=== PATIENT | male | born 1965 | race Caucasian/White ===

== ENCOUNTER → 2016-09-29 | Outpatient (CLI) | payer BC ==
--- NOTE | 2016-09-29 16:42 | CR ---
EXAMINATION: Right ribs HISTORY: Pain COMPARISON: CT dated 07/20/2016 TECHNIQUE: 2 views FINDINGS/IMPRESSION: There is no displaced rib fracture identified. No pleural effusion or pneumotho rax. Bone mineralization is normal.
== END ==
LOC: MW.CHFP 15:14
PROVIDERS: ATTEND Physician Assistant
DX: R07.81 Pleurodynia (principal)
CPT/HCPCS: 71100-26-RT; 71100-RT

== ENCOUNTER 2018-09-30 03:13 | Emergency (ER) | payer OTHER ==
--- NOTE | 2018-09-30 03:51 | EDM.PDOC ---
ED HPI GENERAL MEDICAL PROBLEM - General Chief Complaint: Headache Stated Complaint: HYPERTENSION Time Seen by Provider: 09/30/18 03:45 - History of Present Illness INITIAL COMMENTS - FREE TEXT/NARRATIVE: HISTORY AND PHYSICAL: History of present illness: Patient 53-year-old white male in custody of law enforcement who presents for medical clearance Review of systems: As per history of present illness and below otherwise all systems reviewed and negative. Past medical history: As per history of present illness and as reviewed below otherwise noncontributory. Surgical history: As per history of present illness and as reviewed below otherwise noncontributory. Social history: No reported history of drug or alcohol abuse. Family history: As per history of present illness and as reviewed below otherwise noncontributory. Physical exam: HEENT: Atraumatic, normocephalic, pupils reactive, negative for conjunctival pallor or scleral icterus, mucous membranes moist, throat clear, neck supple, nontender, trachea midline. Lungs: Clear to auscultation, breath sounds equal bilaterally, chest nontender. Heart: S1S2, regular, negative for clicks, rubs, or JVD. Abdomen: Soft, nondistended, nontender. Negative for masses or hepatosplenomegaly. Negative for costovertebral tenderness. Pelvis: Stable nontender. Genitourinary: Deferred. Rectal: Deferred. Extremities: Atraumatic, negative for cords or calf pain. Neurovascular unremarkable. Neuro: Awake, alert, oriented. Cranial nerves II through XII unremarkable. Cerebellum unremarkable. Motor and sensory unremarkable throughout. Exam nonfocal. Diagnostics: None Therapeutics: None Impression: #1 medically clear for incarceration Definitive disposition and diagnosis as appropriate pending reevaluation and review of above. - Related Data Allergies Allergy/AdvReac Type Severity Reaction Status Date / Time No Known Allergies Allergy Verified 03/27/18 10:09 Home Meds: Home Meds Lisinopril 10 mg PO DAILY 02/17/18 [History] Past Medical History HEENT History: Reports: Impaired Vision Other HEENT History: wears glasses Cardiovascular History: Reports: High Cholesterol, Hypertension Respiratory History: Reports: None Gastrointestinal History: Reports: Colon Polyp, GI Bleed, Other (See Below) Genitourinary History: Reports: None Musculoskeletal History: Reports: Fracture Neurological History: Reports: None Psychiatric History: Reports: Anxiety Endocrine/Metabolic History: Reports: None Hematologic History: Reports: None Immunologic History: Reports: None Oncologic (Cancer) History: Reports: None Dermatologic History: Reports: None - Infectious Disease History Infectious Disease History: Reports: None Other Infectious Disease History: "possible Hep C" - Past Surgical History Head Surgeries/Procedures: Reports: None HEENT Surgical History: Reports: Oral Surgery Cardiovascular Surgical History: Reports: None Respiratory Surgical History: Reports: None GI Surgical History: Reports: Colonoscopy Male Surgical History: Reports: None Endocrine Surgical History: Reports: None Neurological Surgical History: Reports: None Musculoskeletal Surgical History: Reports: Other (See Below) Other Musculoskeletal Surgeries/Procedures:: hx surgical repair of left ankle fx Dermatological Surgical History: Reports: None - Past Imaging History Past Imaging History: Reports: MRI (leg) Social & Family History - Family History Family Medical History: Noncontributory - Tobacco Use Smoking Status *Q: Current Every Day Smoker Years of Tobacco use: 30 Packs/Tins Daily: 1 - Caffeine Use Caffeine Use: Reports: Coffee - Recreational Drug Use Recreational Drug Use: No ED ROS GENERAL - Review of Systems Review Of Systems: ROS reveals no pertinent complaints other than HPI. ED EXAM, GENERAL - Physical Exam Exam: See Below (See dictation) Course - Vital Signs Last Recorded V/S: Last Vital Signs Temp 36.6 C 09/30/18 03:13 Pulse 71 09/30/18 03:13 Resp 18 09/30/18 03:13 BP 114/65 09/30/18 03:13 Pulse Ox 97 09/30/18 03:13 Departure - Departure Time of Disposition: 03:50 Disposition: Home, Self-Care 01 Condition: Good Clinical Impression: Medical clearance for incarceration - Discharge Information Additional Instructions: The following information is given to patients seen in the emergency department who are being discharged to home. This information is to outline your options for follow-up care. We provide all patients seen in our emergency department with a follow-up referral. The need for follow-up, as well as the timing and circumstances, are variable depending upon the specifics of your emergency department visit. If you don't have a primary care physician on staff, we will provide you with a referral. We always advise you to contact your personal physician following an emergency department visit to inform them of the circumstance of the visit and for follow-up with them and/or the need for any referrals to a consulting specialist. The emergency department will also refer you to a specialist when appropriate. This referral assures that you have the opportunity for followup care with a specialist. All of these measure are taken in an effort to provide you with optimal care, which includes your followup. Under all circumstances we always encourage you to contact your private physician who remains a resource for coordinating your care. When calling for followup care, please make the office aware that this follow-up is from your recent emergency room visit. If for any reason you are refused follow-up, please contact the [facility] emergency department at and asked to speak to the emergency department charge nurse. Follow-up primary medical doctor as needed as discussed and return as needed as discussed
[2018-09-30 04:07] VITALS: BP 130/80
== END 2018-09-30 04:00 | disposition home or self-care (01) ==
LOC: MW.ED 03:13
DX: Z02.89 Encounter for other administrative examinations (principal); I10 Essential (primary) hypertension; F17.210 Nicotine dependence, cigarettes, uncomplicated
CPT/HCPCS: 99282; 99284

== ENCOUNTER 2019-06-14 23:30 | Emergency (ER) | payer OTHER ==
--- NOTE | 2019-06-15 00:03 | EDM.PDOC ---
ED HPI GENERAL MEDICAL PROBLEM - General Chief Complaint: General Stated Complaint: MED CLEARANCE Time Seen by Provider: 06/14/19 23:42 Source of Information: Reports: Patient History Limitations: Reports: No Limitations - History of Present Illness INITIAL COMMENTS - FREE TEXT/NARRATIVE: States he has been coughing for the past 2 to 3 weeks. Patient states that he has yellow productive sputum and has high blood pressure. Onset: Today Duration: Week(s): Location: Reports: Chest Quality: Reports: Other Severity: Mild Improves with: Reports: None Worsens with: Reports: None Context: Reports: Activity Shoulder Pain Score (Numeric/FACES): 6 - Related Data Allergies Allergy/AdvReac Type Severity Reaction Status Date / Time No Known Allergies Allergy Verified 03/27/18 10:09 Home Meds: Home Meds Lisinopril 10 mg PO DAILY 02/17/18 [History] Past Medical History HEENT History: Reports: Impaired Vision Other HEENT History: wears glasses Cardiovascular History: Reports: High Cholesterol, Hypertension Respiratory History: Reports: None Gastrointestinal History: Reports: Colon Polyp, GI Bleed, Other (See Below) Genitourinary History: Reports: None Musculoskeletal History: Reports: Fracture Neurological History: Reports: None Psychiatric History: Reports: Anxiety Endocrine/Metabolic History: Reports: None Hematologic History: Reports: None Immunologic History: Reports: None Oncologic (Cancer) History: Reports: None Dermatologic History: Reports: None - Infectious Disease History Infectious Disease History: Reports: None Other Infectious Disease History: "possible Hep C" - Past Surgical History Head Surgeries/Procedures: Reports: None HEENT Surgical History: Reports: Oral Surgery Cardiovascular Surgical History: Reports: None Respiratory Surgical History: Reports: None GI Surgical History: Reports: Colonoscopy Male Surgical History: Reports: None Endocrine Surgical History: Reports: None Neurological Surgical History: Reports: None Musculoskeletal Surgical History: Reports: Other (See Below) Other Musculoskeletal Surgeries/Procedures:: hx surgical repair of left ankle fx Dermatological Surgical History: Reports: None - Past Imaging History Past Imaging History: Reports: MRI (leg) Social & Family History - Family History Family Medical History: Noncontributory - Tobacco Use Smoking Status *Q: Current Every Day Smoker Years of Tobacco use: 40 Packs/Tins Daily: 1 - Caffeine Use Caffeine Use: Reports: Coffee - Alcohol Use Days Per Week of Alcohol Use: 7 Number of Drinks Per Day: 3 Total Drinks Per Week: 21 - Recreational Drug Use Recreational Drug Use: No ED ROS GENERAL - Review of Systems Review Of Systems: See Below Constitutional: Reports: No Symptoms HEENT: Reports: No Symptoms Respiratory: Reports: No Symptoms, Cough Cardiovascular: Reports: No Symptoms Endocrine: Reports: No Symptoms GI/Abdominal: Reports: No Symptoms : Reports: No Symptoms Musculoskeletal: Reports: No Symptoms Skin: Reports: No Symptoms Neurological: Reports: No Symptoms Psychiatric: Reports: No Symptoms Hematologic/Lymphatic: Reports: No Symptoms ED EXAM, GENERAL - Physical Exam Exam: See Below Exam Limited By: No Limitations General Appearance: Alert, WD/WN, No Apparent Distress Eye Exam: Bilateral Eye: PERRL Ears: Normal External Exam, Normal Canal, Hearing Grossly Normal, Normal TMs Nose: Normal Inspection, Normal Mucosa Throat/Mouth: Normal Inspection, Normal Lips, Normal Teeth, Normal Gums Head: Atraumatic, Normocephalic Neck: Normal Inspection, Supple, Non-Tender, Full Range of Motion GI/Abdominal: Normal Bowel Sounds, No Distention (Male) Exam: No Hernia, Normal Inspection, Deferred Rectal (Males) Exam: Deferred Back Exam: Normal Inspection, Full Range of Motion Neurological: Alert, Oriented, CN II-XII Intact, Normal Reflexes Psychiatric: Normal Affect, Normal Mood Skin Exam: Warm, Dry, Intact, Normal Color Lymphatic: No Adenopathy Course - Vital Signs Last Recorded V/S: Last Vital Signs Temp 96.6 F 06/14/19 23:36 Pulse 70 06/14/19 23:36 Resp 18 06/14/19 23:36 BP 129/88 06/14/19 23:36 Pulse Ox 98 06/14/19 23:36 54-year-old gentleman who presents the emergency room stating that he has been coughing for 2 weeks and is afraid he had pneumonia. This is a medical clearance. Patient had a chest x-ray which was normal patient is not hypoxic. Assessment on this patient is a upper respiratory tract infection/not pneumonia Departure - Departure Time of Disposition: 01:14 Disposition: Home, Self-Care 01 Condition: Good Clinical Impression: Respiratory tract infection - Discharge Information Instructions: Upper Respiratory Infection, Adult, [id number] Referrals: PCP,None [Primary Care Provider] - Forms: ED Department Discharge Sepsis Event Note - Evaluation Sepsis Screening Result: No Definite Risk - Focused Exam Vital Signs: Vital Signs Temp Pulse Resp BP Pulse Ox 06/14/19 23:36 96.6 F 70 18 129/88 98 Date Exam was Performed: 06/15/19 Time Exam was Performed: 01:12
--- NOTE | 2019-06-15 00:29 | CR ---
INDICATION: cough TECHNIQUE: Chest 1 view. COMPARISON: None. FINDINGS: Cardiovascular and mediastinum: Heart size and vasculature are normal in caliber and appearance. Mediastinum is within normal limits. Lungs and pleural space: Lungs are clear. No sign of infiltrate or mass. No sign of pleural effusion. No pneumothorax. Bones and soft tissues: No significant findings. IMPRESSION: Unremarkable chest. Dictated by: Bayron Godinez MD @ 06/15/2019 00:28:14 (Electronically Signed)
[2019-06-15 01:13] VITALS: BP 112/79; PULSE 60
== END 2019-06-15 01:26 | disposition home or self-care (01) ==
LOC: MW.ED 23:30
DX: J06.9 Acute upper respiratory infection, unspecified (principal); I10 Essential (primary) hypertension; F17.210 Nicotine dependence, cigarettes, uncomplicated; Z98.890 Other specified postprocedural states
CPT/HCPCS: 71045; 71045-26; 99282; 99283-25

== ENCOUNTER 2020-02-19 03:45 | Observation (INO) | payer OTHER ==
[2020-02-19] MEDS ORDERED: Ketorolac 15 MG/ML SDV IVPUSH ONE (04:26)
[2020-02-19] MEDS ORDERED: Sodium Chloride 0.9% 1,000 ML IV ONE ×2 (04:26→05:42)
[2020-02-19] MEDS ORDERED: Sodium Chloride 0.9% 10 ML Syringe FLUSH PRN (04:26)
[2020-02-19] MEDS ORDERED: Sodium Chloride 0.9% 2.5 ML Syringe FLUSH PRN (04:26)
[2020-02-19] MEDS ORDERED: Ondansetron 4 MG/2 ML SDV IVPUSH ONE (04:26)
[2020-02-19] MEDS ORDERED: Morphine 4 MG/ML Syringe IVPUSH ONE (04:26)
[2020-02-19] MEDS ORDERED: Clindamycin Phosphate in D5W 600 MG in Premix Bag 1 BAG IV ONE ×2 (04:26)
[2020-02-19 04:57] LABS: BLOOD UREA NITROGEN,BUN 8 mg/dL (7.0-18.0); CARBON DIOXIDE,CO2 17.9 mmol/L (21.0-32.0); CHLORIDE,CL 103 mmol/L (98-107); GLUCOSE RANDOM 139 mg/dL (74-106); POTASSIUM,K 3.7 mmol/L (3.5-5.1); SODIUM,NA 138 mmol/L (136-148)
--- NOTE | 2020-02-19 05:17 | EDM.PDOC ---
ED HPI GENERAL MEDICAL PROBLEM - General Chief Complaint: Skin Complaint Stated Complaint: POSSIBLE BITE ON RIGHT HAND Time Seen by Provider: 02/19/20 03:52 - History of Present Illness INITIAL COMMENTS - FREE TEXT/NARRATIVE: HISTORY AND PHYSICAL: History of present illness: This is a 54-year-old gentleman with history significant for hypertension who presents ER today complaining of severe pain to his right hand which started this evening. Patient reports that he injured his hand while he was working on his garden on Wednesday. Patient reports that he noticed a small puncture wound to the lateral aspect of his right hand. Patient reports that over the last 24 hours his right hand has become more tender with increased redness and swelling to that region. Patient reports pain got so severe this evening that he needed to come to the ED for assistance. Patient denies any recent fevers, shakes, chills, nausea, vomiting, diarrhea, dysuria, frequency, urgency, chest pain, shortness of breath, abdominal discomfort. Patient reports that the pain feels better when he lifts his hand above his head. Patient reports that he has full range of motion of his fingers but has pain with movement of the fingers in his hands. Patient's tetanus status is not up-to-date. Patient has no known drug allergies. Patient denies any diabetes, liver, lung, kidney problems. Patient denies any alcohol or drugs. Patient admits to tobacco use. Review of systems: As per history of present illness and below otherwise all systems reviewed and negative. Past medical history: As per history of present illness and as reviewed below otherwise noncontributory. Surgical history: As per history of present illness and as reviewed below otherwise noncontributory. Social history: No reported history of drug or alcohol abuse. Family history: As per history of present illness and as reviewed below otherwise noncontributory. Physical exam: Constitutional: Patient is oriented to person, place, and time. Appears well- developed and well-nourished. No distress. HEENT: Moist mucous membranes Head: Normocephalic and atraumatic Eyes: Right eye exhibits no discharge. Left eye exhibits no discharge. No scleral icterus Neck: Normal range of motion. No tracheal deviation present. Cardiovascular: Normal rate and regular rhythm. Pulmonary: Effort normal, no respiratory distress. Abdominal: No distention Musculoskeletal: Normal range of motion Neurologic: Alert and oriented to person, place and time. Skin: [place], warm and dry. Psychiatric: Normal mood and affect. Behavior is normal. Judgment and thought content normal. Nursing note and vital signs have been reviewed Patient's ER physical exam is significant for warmth and tenderness and erythema to his right hand over the ulnar aspect. Patient has no lymphangitic streaking. Patient has no fluctuance or evidence of abscess. Patient does have a small entrance wound over his fifth metacarpal region on the dorsal aspect. No purulent drainage. Diagnostics: X-ray of right hand reveals no foreign body or bony deformity. Therapeutics: Patient's exam is consistent with cellulitis of his right hand. Patient be started on vancomycin and clindamycin to cover empirically for cellulitis of the right hand. Assessment and plan: 54-year-old gentleman who presents ER today with redness swelling and pain to his right hand. Patient reports that this occurred while he was gardening and pulling cucumbers from his garden on Wednesday. Patient does exhibit a small puncture wound to the dorsal aspect of his fifth metacarpal on the right side. Is unclear whether or not this might be an injury from a thorn versus an insect bite. X-ray did not reveal any foreign body. Patient does have an elevated lactic acid level. Given the degree of erythema and tenderness involving the hand, I feel patient will need IV antibiotics administered for treatment of hand cellulitis. Case discussed with Dr. Tavares who is agreed to assist with inpatient care of this patient. Definitive disposition and diagnosis as appropriate pending reevaluation and review of above. RIGHT HAND Pain Score (Numeric/FACES): 8 - Related Data Allergies Allergy/AdvReac Type Severity Reaction Status Date / Time No Known Allergies Allergy Verified 02/19/20 03:59 Home Meds: Home Meds . [No Known Home Meds] 02/19/20 [History] Past Medical History HEENT History: Reports: Impaired Vision Other HEENT History: wears glasses Cardiovascular History: Reports: High Cholesterol, Hypertension Respiratory History: Reports: None Gastrointestinal History: Reports: Colon Polyp, GI Bleed, Other (See Below) Genitourinary History: Reports: None Musculoskeletal History: Reports: Fracture Neurological History: Reports: None Psychiatric History: Reports: Anxiety Endocrine/Metabolic History: Reports: None Insulin Pump Model and Client Account Manager: None Hematologic History: Reports: None Immunologic History: Reports: None Oncologic (Cancer) History: Reports: None Dermatologic History: Reports: None - Infectious Disease History Infectious Disease History: Reports: None Other Infectious Disease History: "possible Hep C" - Past Surgical History Head Surgeries/Procedures: Reports: None HEENT Surgical History: Reports: Oral Surgery Cardiovascular Surgical History: Reports: None Respiratory Surgical History: Reports: None GI Surgical History: Reports: Colonoscopy Male Surgical History: Reports: None Endocrine Surgical History: Reports: None Neurological Surgical History: Reports: None Musculoskeletal Surgical History: Reports: Other (See Below) Other Musculoskeletal Surgeries/Procedures:: hx surgical repair of left ankle fx Dermatological Surgical History: Reports: None - Past Imaging History Past Imaging History: Reports: MRI (leg) Social & Family History - Family History Family Medical History: Noncontributory - Tobacco Use Smoking Status *Q: Current Every Day Smoker Years of Tobacco use: 20 Packs/Tins Daily: 1 - Caffeine Use Caffeine Use: Reports: Coffee - Recreational Drug Use Recreational Drug Use: No ED ROS GENERAL - Review of Systems Review Of Systems: Comprehensive ROS is negative, except as noted in HPI. ED EXAM, SKIN/RASH Exam: See Below Course - Vital Signs Last Recorded V/S: Last Vital Signs Temp 97.7 F 02/19/20 04:00 Pulse 90 02/19/20 04:00 Resp 18 02/19/20 04:00 BP 116/76 02/19/20 04:00 Pulse Ox 98 02/19/20 04:00 - Orders/Labs/Meds Orders: Active Orders 24 hr Category Date Time Status Vaccines to be Administered [RC] PER UNIT ROUTINE Care 02/19/20 05:39 Ordered Hand Comp Min 3V Rt [CR] Stat Exams 02/19/20 04:30 Taken CORONAVIRUS COVID-19 GUI [MOLEC] Stat Lab 02/19/20 05:05 Received CULTURE BLOOD [BC] Stat Lab 02/19/20 04:55 Received CULTURE BLOOD [BC] Stat Lab 02/19/20 05:05 Received PROCALCITONIN [REF] Stat Lab 02/19/20 04:40 Received Sodium Chloride 0.9% [Saline Flush] Med 02/19/20 04:26 Active 10 ml FLUSH ASDIRECTED PRN Sodium Chloride 0.9% [Saline Flush] Med 02/19/20 04:26 Active 2.5 ml FLUSH ASDIRECTED PRN Blood Culture x2 Reflex Set [OM.PC] Stat Ot 02/19/20 04:27 Ordered Saline Lock Insert [OM.PC] Stat Ot 02/19/20 04:27 Ordered Medication Orders Sodium Chloride (Saline Flush) 10 ml FLUSH ASDIRECTED PRN PRN Reason: Keep Vein Open Sodium Chloride (Saline Flush) 2.5 ml FLUSH ASDIRECTED PRN PRN Reason: Keep Vein Open Labs: Laboratory Tests 02/19/20 02/19/20 02/19/20 Range/Units 04:40 04:40 04:40 WBC 11.50 H (4.0-11.0) K/uL RBC 4.58 (4.50-5.90) M/uL Hgb 15.9 (13.0-17.0) g/dL Hct 45.9 (38.0-50.0) % MCV 100.2 H (80.0-98.0) fL MCH 34.7 H (27.0-32.0) pg MCHC 34.6 (31.0-37.0) g/dL RDW Std Deviation 51.7 (28.0-62.0) fl RDW Coeff of Rosalie 14 (11.0-15.0) % Plt Count 178 (150-400) K/uL MPV 9.90 (7.40-12.00) fL Neut % (Auto) 69.6 (48.0-80.0) % Lymph % (Auto) 18.9 (16.0-40.0) % [place] % (Auto) 10.6 (0.0-15.0) % Eos % (Auto) 0.7 (0.0-7.0) % Baso % (Auto) 0.2 (0.0-1.5) % Neut # (Auto) 8.0 H (1.4-5.7) K/uL Lymph # (Auto) 2.2 (0.6-2.4) K/uL [place] # (Auto) 1.2 H (0.0-0.8) K/uL Eos # (Auto) 0.1 (0.0-0.7) K/uL Baso # (Auto) 0.0 (0.0-0.1) K/uL Nucleated RBC % 0.0 /100WBC Nucleated RBCs # 0 K/uL ESR 14 (0-19) mm/hr Lactate 2.7 H* (0.20-2.00) mmol/L Sodium (136-148) mmol/L Potassium (3.5-5.1) mmol/L Chloride (98-107) mmol/L Carbon Dioxide (21.0-32.0) mmol/L BUN (7.0-18.0) mg/dL Creatinine (0.8-1.3) mg/dL Est Cr Clr Drug Dosing mL/min Estimated GFR (MDRD) ml/min Glucose (74-106) mg/dL Calcium (8.5-10.1) mg/dL Total Bilirubin (0.2-1.0) mg/dL AST (15-37) IU/L ALT (14-63) IU/L Alkaline Phosphatase (46-116) U/L C-Reactive Protein (0.00-0.90) mg/dL Total Protein (6.4-8.2) g/dL Albumin (3.4-5.0) g/dL Globulin (2.6-4.0) g/dL Albumin/Globulin Ratio (0.9-1.6) 02/19/20 Range/Units 04:40 WBC (4.0-11.0) K/uL RBC (4.50-5.90) M/uL Hgb (13.0-17.0) g/dL Hct (38.0-50.0) % MCV (80.0-98.0) fL MCH (27.0-32.0) pg MCHC (31.0-37.0) g/dL RDW Std Deviation (28.0-62.0) fl RDW Coeff of Rosalie (11.0-15.0) % Plt Count (150-400) K/uL MPV (7.40-12.00) fL Neut % (Auto) (48.0-80.0) % Lymph % (Auto) (16.0-40.0) % [place] % (Auto) (0.0-15.0) % Eos % (Auto) (0.0-7.0) % Baso % (Auto) (0.0-1.5) % Neut # (Auto) (1.4-5.7) K/uL Lymph # (Auto) (0.6-2.4) K/uL [place] # (Auto) (0.0-0.8) K/uL Eos # (Auto) (0.0-0.7) K/uL Baso # (Auto) (0.0-0.1) K/uL Nucleated RBC % /100WBC Nucleated RBCs # K/uL ESR (0-19) mm/hr Lactate (0.20-2.00) mmol/L Sodium 138 (136-148) mmol/L Potassium 3.7 (3.5-5.1) mmol/L Chloride 103 (98-107) mmol/L Carbon Dioxide 17.9 L (21.0-32.0) mmol/L BUN 8 (7.0-18.0) mg/dL Creatinine 1.1 (0.8-1.3) mg/dL Est Cr Clr Drug Dosing 79.27 mL/min Estimated GFR (MDRD) > 60.0 ml/min Glucose 139 H (74-106) mg/dL Calcium 8.9 (8.5-10.1) mg/dL Total Bilirubin 0.9 (0.2-1.0) mg/dL AST 23 (15-37) IU/L ALT 42 (14-63) IU/L Alkaline Phosphatase 66 (46-116) U/L C-Reactive Protein 5.90 H (0.00-0.90) mg/dL Total Protein 7.7 (6.4-8.2) g/dL Albumin 3.9 (3.4-5.0) g/dL Globulin 3.8 (2.6-4.0) g/dL Albumin/Globulin Ratio 1.0 (0.9-1.6) Meds: Medications Generic Name Dose Route Start Last Admin Trade Name Freq PRN Reason Stop Dose Admin Sodium Chloride 10 ml 02/19/20 04:26 Saline Flush FLUSH ASDIRECTED PRN Keep Vein Open Sodium Chloride 2.5 ml 02/19/20 04:26 Saline Flush FLUSH ASDIRECTED PRN Keep Vein Open Discontinued Medications Generic Name Dose Route Start Last Admin Trade Name Freq PRN Reason Stop Dose Admin Diphtheria/Tetanus/Acell Pertussis 0.5 ml 02/19/20 05:38 Adacel IM 02/19/20 05:39 .ONCE ONE Sodium Chloride 1,000 mls @ 999 mls/hr 02/19/20 04:26 02/19/20 04:44 Normal Saline IV 02/19/20 05:26 999 mls/hr .Bolus ONE Administration Clindamycin Phosphate 600 mg/ 50 mls @ 100 mls/hr 02/19/20 04:26 Premix IV 02/19/20 04:55 ONETIME ONE Vancomycin HCl 1.5 gm/ Premix 300 mls @ 300 mls/hr 02/19/20 05:10 02/19/20 05:16 IV 02/19/20 05:11 300 mls/hr ONETIME ONE Administration Ketorolac Tromethamine 15 mg 02/19/20 04:26 02/19/20 04:44 Toradol IVPUSH 02/19/20 04:27 15 mg ONETIME ONE Administration Morphine Sulfate 4 mg 02/19/20 04:26 02/19/20 04:45 Morphine IVPUSH 02/19/20 04:27 4 mg ONETIME ONE Administration Ondansetron HCl 4 mg 02/19/20 04:26 02/19/20 04:44 Zofran IVPUSH 02/19/20 04:27 4 mg ONETIME ONE Administration Departure - Departure Time of Disposition: 05:17 Disposition: Admitted As Inpatient 66 Condition: Good Clinical Impression: Cellulitis, Cellulitis of right hand - Discharge Information Referrals: PCP,None [Primary Care Provider] - Forms: ED Department Discharge Sepsis Event Note (ED) - Evaluation Sepsis Screening Result: No Definite Risk - Focused Exam Vital Signs: Vital Signs Temp Pulse Resp BP Pulse Ox 02/19/20 04:00 97.7 F 90 18 116/76 98 - My Orders Last 24 Hours: My Active Orders 02/19/20 04:26 Sodium Chloride 0.9% [Saline Flush] 10 ml FLUSH ASDIRECTED PRN Sodium Chloride 0.9% [Saline Flush] 2.5 ml FLUSH ASDIRECTED PRN 02/19/20 04:27 Blood Culture x2 Reflex Set [OM.PC] Stat Saline Lock Insert [OM.PC] Stat 02/19/20 04:30 Hand Comp Min 3V Rt [CR] Stat 02/19/20 04:40 PROCALCITONIN [REF] Stat 02/19/20 04:55 CULTURE BLOOD [BC] Stat 02/19/20 05:05 CORONAVIRUS COVID-19 GUI [MOLEC] Stat CULTURE BLOOD [BC] Stat 02/19/20 05:39 Vaccines to be Administered [RC] PER UNIT ROUTINE - Assessment/Plan Last 24 Hours: My Active Orders 02/19/20 04:26 Sodium Chloride 0.9% [Saline Flush] 10 ml FLUSH ASDIRECTED PRN Sodium Chloride 0.9% [Saline Flush] 2.5 ml FLUSH ASDIRECTED PRN 02/19/20 04:27 Blood Culture x2 Reflex Set [OM.PC] Stat Saline Lock Insert [OM.PC] Stat 02/19/20 04:30 Hand Comp Min 3V Rt [CR] Stat 02/19/20 04:40 PROCALCITONIN [REF] Stat 02/19/20 04:55 CULTURE BLOOD [BC] Stat 02/19/20 05:05 CORONAVIRUS COVID-19 GUI [MOLEC] Stat CULTURE BLOOD [BC] Stat 02/19/20 05:39 Vaccines to be Administered [RC] PER UNIT ROUTINE
[2020-02-19] MEDS ORDERED: Diphtheria,Pertussis(Acell),Tetanus Vaccine 0.5 ML Syringe IM ONE (05:38)
--- NOTE | 2020-02-19 05:47 | CR ---
INDICATION: Right hand pain. Scratched the hand during gardening. Lateral pain and swelling. COMPARISON: None available. TECHNIQUE: The right hand is examined with PA, lateral, and oblique views. FINDINGS: There is no sign of fracture or dislocation. The soft tissues are normal in appearance without sign of radio-opaque foreign body. No degenerative disease is seen. IMPRESSION: Normal right hand. Dictated by Giuliano Cedillo MD @ Feb 19 2020 5:44AM Signed by Dr. Giuliano Cedillo @ Feb 19 2020 5:46AM
[2020-02-19] MEDS ORDERED: Acetaminophen 500 MG Tab PO PRN (06:23)
[2020-02-19] MEDS ORDERED: Morphine 2 MG/ML SYRINGE IVPUSH PRN (06:25)
[2020-02-19] MEDS: Lactated Ringers 1,000 ML IV SCH ×2 (07:49→16:05)
[2020-02-19 08:30] LABS: HEMOGLOBIN A1C 5.6 % (4.5-6.2)
[2020-02-19] MEDS ORDERED: Clindamycin Phosphate in D5W 600 MG in Premix Bag 1 BAG IV SCH ×2 (08:45)
--- NOTE | 2020-02-19 10:37 | PCM.HP.2 ---
<Farnaz Smith - Last Filed: 02/19/20 11:15> H&P History of Present Illness - General Date of Service: 02/19/20 Admit Problem/Dx: Admission Diagnosis/Problem Admission Diagnosis/Problem Cellulitis and abscess of hand Source of Information: Patient History Limitations: Reports: No Limitations - History of Present Illness Initial Comments - Free Text/Narative: 54 y.o male with PMH of HTN . non-compliant with his lisinopril. presenting with right hand pain , redness and swelling after pricking it on some thrones in his garden 2 -days earlier. Denies any fevers, chills, BA but does have some hard time making a fist secondary to swelling. Was plucking cucumbers but did poke his finger on some khoa. pt. is right hand dominant Denies any other systemic symptoms ED course :x-ray negative for any obvious bony involvement Started on clindamycin + vancomycin Bedside: denies any pain and or discomfort at this time. Still having a hard time making a full fist RIGHT HAND Pain Score (Numeric/FACES): 4 - Related Data Allergies/Adverse Reactions: Allergies Allergy/AdvReac Type Severity Reaction Status Date / Time No Known Allergies Allergy Verified 02/19/20 07:55 Home Medications: Home Meds Lisinopril/Hydrochlorothiazide [Lisinopril-HCTZ 10-12.5 MG] 1 tab PO DAILY 02/19/20 [History] Acetaminophen [Tylenol Extra Strength] 500 mg PO Q6H PRN tablet 02/21/20 [Rx] clindamycin HCL [Cleocin] 450 mg PO Q8H #63 cap 02/21/20 [Rx] Past Medical History HEENT History: Reports: Impaired Vision Other HEENT History: wears glasses Cardiovascular History: Reports: High Cholesterol, Hypertension Respiratory History: Reports: None Gastrointestinal History: Reports: Colon Polyp, GI Bleed, Other (See Below) Genitourinary History: Reports: None Musculoskeletal History: Reports: Fracture Neurological History: Reports: None Psychiatric History: Reports: Anxiety Endocrine/Metabolic History: Reports: None Insulin Pump Model and Directory Operator: None Hematologic History: Reports: None Immunologic History: Reports: None Oncologic (Cancer) History: Reports: None Dermatologic History: Reports: None - Infectious Disease History Infectious Disease History: Reports: Measles Other Infectious Disease History: "possible Hep C" - Past Surgical History Head Surgeries/Procedures: Reports: None HEENT Surgical History: Reports: Oral Surgery Cardiovascular Surgical History: Reports: None Respiratory Surgical History: Reports: None GI Surgical History: Reports: Colonoscopy Male Surgical History: Reports: None Endocrine Surgical History: Reports: None Neurological Surgical History: Reports: None Musculoskeletal Surgical History: Reports: Other (See Below) Other Musculoskeletal Surgeries/Procedures:: hx surgical repair of left ankle fx Dermatological Surgical History: Reports: None - Past Imaging History Past Imaging History: Reports: MRI (leg) Social & Family History - Family History Family Medical History: Noncontributory - Tobacco Use Smoking Status *Q: Current Every Day Smoker Years of Tobacco use: 20 Packs/Tins Daily: 0.5 Used Tobacco, but Quit: No Second Hand Smoke Exposure: Yes - Caffeine Use Caffeine Use: Reports: None - Alcohol Use Days Per Week of Alcohol Use: 3 Number of Drinks Per Day: 2 Total Drinks Per Week: 6 - Recreational Drug Use Recreational Drug Use: No H&P Review of Systems - Review of Systems: Review Of Systems: See Below General: Reports: No Symptoms HEENT: Reports: No Symptoms Pulmonary: Reports: No Symptoms Cardiovascular: Reports: No Symptoms Gastrointestinal: Reports: No Symptoms Genitourinary: Reports: No Symptoms Musculoskeletal: Reports: Hand Pain Skin: Reports: Erythema Psychiatric: Reports: No Symptoms Neurological: Reports: No Symptoms Hematologic/Lymphatic: Reports: No Symptoms Exam - Exam Exam: See Below - Vital Signs Vital Signs: Last Vital Signs Temp 98.4 F 02/19/20 08:00 Pulse 78 02/19/20 08:00 Resp 18 02/19/20 08:00 BP 128/79 02/19/20 08:00 Pulse Ox 94 L 02/19/20 08:00 Weight: 98.4 kg - Exam Quality Assessment: No: Supplemental Oxygen General: Alert, Oriented, Cooperative HEENT: Conjunctiva Clear, EOMI Neck: Supple, Trachea Midline Lungs: Clear to Auscultation, Normal Respiratory Effort Cardiovascular: Regular Rate, Regular Rhythm GI/Abdominal Exam: Soft, Non-Tender Back Exam: Normal Inspection Extremities: Other (right hand (dominant): 5th digit dorsal aspect swelling ; redness and swelling more on dorsal aspect of hand at base of 5th and 4th digit ; noticble swelling noted compared to left hand ) Skin: Warm, Dry Neurological: Cranial Nerves Intact Neuro Extensive - Mental Status: Alert, Oriented x3 Neuro Extensive - Motor, Sensory, Reflexes: Normal Gait - Patient Data Lab Results Last 24 hrs: Laboratory Results - last 24 hr 02/19/20 02/19/20 02/19/20 Range/Units 04:40 04:40 04:40 WBC 11.50 H (4.0-11.0) K/uL RBC 4.58 (4.50-5.90) M/uL Hgb 15.9 (13.0-17.0) g/dL Hct 45.9 (38.0-50.0) % MCV 100.2 H (80.0-98.0) fL MCH 34.7 H (27.0-32.0) pg MCHC 34.6 (31.0-37.0) g/dL RDW Std Deviation 51.7 (28.0-62.0) fl RDW Coeff of Rosalie 14 (11.0-15.0) % Plt Count 178 (150-400) K/uL MPV 9.90 (7.40-12.00) fL Neut % (Auto) 69.6 (48.0-80.0) % Lymph % (Auto) 18.9 (16.0-40.0) % [place] % (Auto) 10.6 (0.0-15.0) % Eos % (Auto) 0.7 (0.0-7.0) % Baso % (Auto) 0.2 (0.0-1.5) % Neut # (Auto) 8.0 H (1.4-5.7) K/uL Lymph # (Auto) 2.2 (0.6-2.4) K/uL [place] # (Auto) 1.2 H (0.0-0.8) K/uL Eos # (Auto) 0.1 (0.0-0.7) K/uL Baso # (Auto) 0.0 (0.0-0.1) K/uL Nucleated RBC % 0.0 /100WBC Nucleated RBCs # 0 K/uL ESR 14 (0-19) mm/hr Lactate 2.7 H* (0.20-2.00) mmol/L Sodium (136-148) mmol/L Potassium (3.5-5.1) mmol/L Chloride (98-107) mmol/L Carbon Dioxide (21.0-32.0) mmol/L BUN (7.0-18.0) mg/dL Creatinine (0.8-1.3) mg/dL Est Cr Clr Drug Dosing mL/min Estimated GFR (MDRD) ml/min Glucose (74-106) mg/dL Hemoglobin A1c (4.5-6.2) % Calcium (8.5-10.1) mg/dL Phosphorus (2.6-4.7) mg/dL Magnesium (1.8-2.4) mg/dL Total Bilirubin (0.2-1.0) mg/dL AST (15-37) IU/L ALT (14-63) IU/L Alkaline Phosphatase (46-116) U/L C-Reactive Protein (0.00-0.90) mg/dL Total Protein (6.4-8.2) g/dL Albumin (3.4-5.0) g/dL Globulin (2.6-4.0) g/dL Albumin/Globulin Ratio (0.9-1.6) SARS Virus RNA (PCR) (NEGATIVE) 02/19/20 02/19/20 02/19/20 Range/Units 04:40 04:40 04:40 WBC (4.0-11.0) K/uL RBC (4.50-5.90) M/uL Hgb (13.0-17.0) g/dL Hct (38.0-50.0) % MCV (80.0-98.0) fL MCH (27.0-32.0) pg MCHC (31.0-37.0) g/dL RDW Std Deviation (28.0-62.0) fl RDW Coeff of Rosalie (11.0-15.0) % Plt Count (150-400) K/uL MPV (7.40-12.00) fL Neut % (Auto) (48.0-80.0) % Lymph % (Auto) (16.0-40.0) % [place] % (Auto) (0.0-15.0) % Eos % (Auto) (0.0-7.0) % Baso % (Auto) (0.0-1.5) % Neut # (Auto) (1.4-5.7) K/uL Lymph # (Auto) (0.6-2.4) K/uL [place] # (Auto) (0.0-0.8) K/uL Eos # (Auto) (0.0-0.7) K/uL Baso # (Auto) (0.0-0.1) K/uL Nucleated RBC % /100WBC Nucleated RBCs # K/uL ESR (0-19) mm/hr Lactate (0.20-2.00) mmol/L Sodium 138 (136-148) mmol/L Potassium 3.7 (3.5-5.1) mmol/L Chloride 103 (98-107) mmol/L Carbon Dioxide 17.9 L (21.0-32.0) mmol/L BUN 8 (7.0-18.0) mg/dL Creatinine 1.1 (0.8-1.3) mg/dL Est Cr Clr Drug Dosing 79.27 mL/min Estimated GFR (MDRD) > 60.0 ml/min Glucose 139 H (74-106) mg/dL Hemoglobin A1c 5.6 (4.5-6.2) % Calcium 8.9 (8.5-10.1) mg/dL Phosphorus 1.9 L (2.6-4.7) mg/dL Magnesium 2.1 (1.8-2.4) mg/dL Total Bilirubin 0.9 (0.2-1.0) mg/dL AST 23 (15-37) IU/L ALT 42 (14-63) IU/L Alkaline Phosphatase 66 (46-116) U/L C-Reactive Protein 5.90 H (0.00-0.90) mg/dL Total Protein 7.7 (6.4-8.2) g/dL Albumin 3.9 (3.4-5.0) g/dL Globulin 3.8 (2.6-4.0) g/dL Albumin/Globulin Ratio 1.0 (0.9-1.6) SARS Virus RNA (PCR) (NEGATIVE) 02/19/20 02/19/20 Range/Units 05:05 09:12 WBC (4.0-11.0) K/uL RBC (4.50-5.90) M/uL Hgb (13.0-17.0) g/dL Hct (38.0-50.0) % MCV (80.0-98.0) fL MCH (27.0-32.0) pg MCHC (31.0-37.0) g/dL RDW Std Deviation (28.0-62.0) fl RDW Coeff of Rosalie (11.0-15.0) % Plt Count (150-400) K/uL MPV (7.40-12.00) fL Neut % (Auto) (48.0-80.0) % Lymph % (Auto) (16.0-40.0) % [place] % (Auto) (0.0-15.0) % Eos % (Auto) (0.0-7.0) % Baso % (Auto) (0.0-1.5) % Neut # (Auto) (1.4-5.7) K/uL Lymph # (Auto) (0.6-2.4) K/uL [place] # (Auto) (0.0-0.8) K/uL Eos # (Auto) (0.0-0.7) K/uL Baso # (Auto) (0.0-0.1) K/uL Nucleated RBC % /100WBC Nucleated RBCs # K/uL ESR (0-19) mm/hr Lactate 0.7 (0.20-2.00) mmol/L Sodium (136-148) mmol/L Potassium (3.5-5.1) mmol/L Chloride (98-107) mmol/L Carbon Dioxide (21.0-32.0) mmol/L BUN (7.0-18.0) mg/dL Creatinine (0.8-1.3) mg/dL Est Cr Clr Drug Dosing mL/min Estimated GFR (MDRD) ml/min Glucose (74-106) mg/dL Hemoglobin A1c (4.5-6.2) % Calcium (8.5-10.1) mg/dL Phosphorus (2.6-4.7) mg/dL Magnesium (1.8-2.4) mg/dL Total Bilirubin (0.2-1.0) mg/dL AST (15-37) IU/L ALT (14-63) IU/L Alkaline Phosphatase (46-116) U/L C-Reactive Protein (0.00-0.90) mg/dL Total Protein (6.4-8.2) g/dL Albumin (3.4-5.0) g/dL Globulin (2.6-4.0) g/dL Albumin/Globulin Ratio (0.9-1.6) SARS Virus RNA (PCR) NEGATIVE (NEGATIVE) Result Diagrams: 02/19/20 04:40 02/19/20 04:40 Sepsis Event Note - Evaluation Sepsis Screening Result: No Definite Risk - Focused Exam Vital Signs: Vital Signs Temp Pulse Resp BP Pulse Ox 02/19/20 08:00 98.4 F 78 18 128/79 94 L 02/19/20 06:10 98.7 F 73 18 117/78 98 02/19/20 04:00 97.7 F 90 18 116/76 98 Problem List Initiated/Reviewed/Updated: Yes Orders Last 24hrs: Active Orders 24 hr Category Date Time Status Patient Status [ADT] Routine ADT 02/19/20 06:03 Active Ambulate [RC] ASDIRECTED Care 02/19/20 06:20 Active Antiembolic Devices [RC] PER UNIT ROUTINE Care 02/19/20 06:21 Active Oxygen Therapy Adult [Oxygen Therapy] [RC] ASDIRECTED Care 02/19/20 06:20 Active Vital Signs [RC] Q4H Care 02/19/20 08:00 Active Regular Diet [DIET] Diet 02/19/20 Breakfast Active CULTURE BLOOD [BC] Stat Lab 02/19/20 04:55 Received CULTURE BLOOD [BC] Stat Lab 02/19/20 05:05 Received PROCALCITONIN [REF] Stat Lab 02/19/20 04:40 Received VANCOMYCIN TROUGH [CHEM] Routine Lab 02/20/20 17:00 Ordered Acetaminophen [Tylenol Extra Strength] Med 02/19/20 06:23 Active 500 mg PO Q6H PRN Clindamycin Phosphate in D5W [Cleocin in D5W] 600 mg Med 02/19/20 13:00 Active Premix Bag 1 bag IV Q8H Lactated Ringers [Ringers, Lactated] 1,000 ml Med 02/19/20 06:30 Active IV ASDIRECTED Morphine Med 02/19/20 06:25 Active 1 mg IVPUSH Q4H PRN Pharmacy to Dose - Vancomycin Med 02/19/20 08:45 Active 1 dose .XX ASDIRECTED Sodium Chloride 0.9% [Saline Flush] Med 02/19/20 04:26 Active 10 ml FLUSH ASDIRECTED PRN Sodium Chloride 0.9% [Saline Flush] Med 02/19/20 04:26 Active 2.5 ml FLUSH ASDIRECTED PRN VANCOmycin/Water for INJ (PEG) [VANCOmycin 1.5 GM/300 Med 02/19/20 18:00 Active ML Premix] 1.5 gm Premix Bag 1 bag IV Q12H Blood Culture x2 Reflex Set [OM.PC] Stat Oth 02/19/20 04:27 Ordered SCD [Sequential Compression Device] [OM.PC] Routine Oth 02/19/20 06:21 Ordered Saline Lock Insert [OM.PC] Stat Oth 02/19/20 04:27 Ordered Code Status [Resuscitation Status] Routine Resus Stat 02/19/20 08:36 Ordered Medication Orders Acetaminophen (Tylenol Extra Strength) 500 mg PO Q6H PRN PRN Reason: Pain (mild 1-3) Lactated Ringer's (Ringers, Lactated) 1,000 mls @ 125 mls/hr IV ASDIRECTED [facility] Last Admin: 02/19/20 07:49 Dose: 125 mls/hr Documented by: MK Clindamycin Phosphate 600 mg/ (Premix) 50 mls @ 100 mls/hr IV Q8H DOROTHY Vancomycin HCl 1.5 gm/ Premix 300 mls @ 200 mls/hr IV Q12H DOROTHY Morphine Sulfate (Morphine) 1 mg IVPUSH Q4H PRN PRN Reason: Pain (moderate 4-6) Sodium Chloride (Saline Flush) 10 ml FLUSH ASDIRECTED PRN PRN Reason: Keep Vein Open Sodium Chloride (Saline Flush) 2.5 ml FLUSH ASDIRECTED PRN PRN Reason: Keep Vein Open Vancomycin HCl (Pharmacy To Dose - Vancomycin) 1 dose .XX ASDIRECTED [facility] Assessment/Plan Comment:: Assessment: 1. Right hand cellulitis/non-purulent 2. Elevated Lactate secondary to above : now resolved 3. PMH: HTN 4, Macrocytic anemia Plan. Admit to observation. Full code. i/o's per routine DVT prophylaxis: heparin 5000 q 12 hours GI prophylaxis: pantoprazole 40 1. Cellulites: continue Vancomycin and Clindamycin and monitor for response; can consider fungal infection if not responding; pt however mentions improvement in symptoms since admission. Can consider further imaging if not responding ct/MRI BCx ordered secondary to elevated Lactate Will await results prior to titration 2. Elevated lactate: resolved with fluid/ IV abx; afebrile 3. HTN: continue to monitor; BP acceptable this AM 4. Macrocytic anemia: continue to monitor; replete with MV: b12 folate for now <Robbie Tavares - Last Filed: 02/21/20 12:53> H&P History of Present Illness - General Admit Problem/Dx: Admission Diagnosis/Problem Admission Diagnosis/Problem Cellulitis and abscess of hand - History of Present Illness Initial Comments - Free Text/Narative: I performed a history and physical exam of the patient and discussed management with resident. I have reviewed the residents note and agree with documented findings and plan unless otherwise specified in my note. Exam - Vital Signs Vital Signs: Last Vital Signs Temp 36.4 C 02/21/20 08:00 Pulse 52 L 02/21/20 08:00 Resp 20 02/21/20 04:00 BP 137/86 02/21/20 08:00 Pulse Ox 96 02/21/20 08:00 - Patient Data Lab Results Last 24 hrs: Laboratory Results - last 24 hr 02/19/20 02/20/20 02/21/20 Range/Units 04:40 17:05 05:07 WBC 6.17 (4.0-11.0) K/uL RBC 4.33 L (4.50-5.90) M/uL Hgb 14.8 (13.0-17.0) g/dL Hct 43.9 (38.0-50.0) % MCV 101.4 H (80.0-98.0) fL MCH 34.2 H (27.0-32.0) pg MCHC 33.7 (31.0-37.0) g/dL RDW Std Deviation 51.3 (28.0-62.0) fl RDW Coeff of Rosalie 14 (11.0-15.0) % Plt Count 185 (150-400) K/uL MPV 10.00 (7.40-12.00) fL Neut % (Auto) 57.3 (48.0-80.0) % Lymph % (Auto) 28.4 (16.0-40.0) % [place] % (Auto) 12.2 (0.0-15.0) % Eos % (Auto) 1.8 (0.0-7.0) % Baso % (Auto) 0.3 (0.0-1.5) % Neut # (Auto) 3.5 (1.4-5.7) K/uL Lymph # (Auto) 1.8 (0.6-2.4) K/uL [place] # (Auto) 0.8 (0.0-0.8) K/uL Eos # (Auto) 0.1 (0.0-0.7) K/uL Baso # (Auto) 0.0 (0.0-0.1) K/uL Nucleated RBC % 0.0 /100WBC Nucleated RBCs # 0 K/uL Sodium (136-148) mmol/L Potassium (3.5-5.1) mmol/L Chloride (98-107) mmol/L Carbon Dioxide (21.0-32.0) mmol/L BUN (7.0-18.0) mg/dL Creatinine (0.8-1.3) mg/dL Est Cr Clr Drug Dosing mL/min Estimated GFR (MDRD) ml/min Glucose (74-106) mg/dL Calcium (8.5-10.1) mg/dL Procalcitonin <0.05 (<0.10) ng/mL Vancomycin Trough 12.6 H (5.0-10.0) ug/mL 02/21/20 Range/Units 05:07 WBC (4.0-11.0) K/uL RBC (4.50-5.90) M/uL Hgb (13.0-17.0) g/dL Hct (38.0-50.0) % MCV (80.0-98.0) fL MCH (27.0-32.0) pg MCHC (31.0-37.0) g/dL RDW Std Deviation (28.0-62.0) fl RDW Coeff of Rosalie (11.0-15.0) % Plt Count (150-400) K/uL MPV (7.40-12.00) fL Neut % (Auto) (48.0-80.0) % Lymph % (Auto) (16.0-40.0) % [place] % (Auto) (0.0-15.0) % Eos % (Auto) (0.0-7.0) % Baso % (Auto) (0.0-1.5) % Neut # (Auto) (1.4-5.7) K/uL Lymph # (Auto) (0.6-2.4) K/uL [place] # (Auto) (0.0-0.8) K/uL Eos # (Auto) (0.0-0.7) K/uL Baso # (Auto) (0.0-0.1) K/uL Nucleated RBC % /100WBC Nucleated RBCs # K/uL Sodium 139 (136-148) mmol/L Potassium 3.8 (3.5-5.1) mmol/L Chloride 104 (98-107) mmol/L Carbon Dioxide 22.8 (21.0-32.0) mmol/L BUN 10 (7.0-18.0) mg/dL Creatinine 1.2 (0.8-1.3) mg/dL Est Cr Clr Drug Dosing 72.66 mL/min Estimated GFR (MDRD) > 60.0 ml/min Glucose 113 H (74-106) mg/dL Calcium 9.1 (8.5-10.1) mg/dL Procalcitonin (<0.10) ng/mL Vancomycin Trough (5.0-10.0) ug/mL Result Diagrams: 02/21/20 05:07 02/21/20 05:07 Raghu Results Last 24 hrs: Microbiology 02/19/20 05:05 Aerobic Blood Culture - Preliminary Blood - Venous - Lab Draw NO GROWTH AFTER 2 DAYS Anaerobic Blood Culture - Preliminary NO GROWTH AFTER 2 DAYS 02/19/20 04:55 Aerobic Blood Culture - Preliminary Blood - Venous NO GROWTH AFTER 2 DAYS Anaerobic Blood Culture - Preliminary NO GROWTH AFTER 2 DAYS Sepsis Event Note - Focused Exam Vital Signs: Vital Signs Temp Pulse Resp BP Pulse Ox 02/21/20 08:00 36.4 C 52 L 137/86 96 02/21/20 04:00 36.8 C 55 L 20 116/58 L 98 Orders Last 24hrs: Active Orders 24 hr Category Date Time Status Intake and Output [RC] Q12H Care 02/20/20 16:00 Active CBC WITH AUTO DIFF [HEME] AM Lab 02/22/20 05:11 Ordered Lisinopril/Hydrochlorothiazide [Lisinopril-HCTZ 10-12.5 Med 02/21/20 09:00 Active MG] 1 tab PO DAILY Pantoprazole [ProTONIX] Med 02/21/20 07:30 Active 40 mg PO ACBREAKFAST clindamycin HCL [Cleocin] Med 02/20/20 22:45 Active 450 mg PO Q8H Medication Orders Acetaminophen (Tylenol Extra Strength) 500 mg PO Q6H PRN PRN Reason: Pain (mild 1-3) Hydrocodone Bitart/Acetaminophen ([place] 325-5 Mg) 1 tab PO Q4H PRN PRN Reason: Pain Last Admin: 02/20/20 18:37 Dose: 1 tab Documented by: MK Clindamycin HCl (Cleocin) 450 mg PO Q8H [facility] Last Admin: 02/21/20 07:02 Dose: 450 mg Documented by: Admin: 02/20/20 23:10 Dose: 450 mg Documented by: ARCENIO Lisinopril/HCTZ (Lisinopril-Hctz 10-12.5 Mg) 1 tab PO DAILY [facility] Last Admin: 02/21/20 09:23 Dose: 1 tab Documented by: MK Heparin Sodium (Porcine) (Heparin Sodium) 5,000 units SUBCUT Q12H [facility] Last Admin: 02/20/20 23:17 Dose: Not Given Documented by: Admin: 02/20/20 12:14 Dose: Not Given Documented by: Admin: 02/19/20 23:39 Dose: Not Given Documented by: JOSE MIGUEL Admin: 02/19/20 12:18 Dose: 5,000 units Documented by: MK Vancomycin HCl 1.5 gm/ Premix 300 mls @ 200 mls/hr IV Q12H [facility] Last Admin: 02/21/20 07:02 Dose: Not Given Documented by: Admin: 02/20/20 18:08 Dose: 200 mls/hr Documented by: Infusion: 02/20/20 07:03 Dose: 200 mls/hr Documented by: Admin: 02/20/20 05:33 Dose: 200 mls/hr Documented by: JOSE MIGUEL Infusion: 02/19/20 19:22 Dose: 200 mls/hr Documented by: JOSE MIGUEL Admin: 02/19/20 17:52 Dose: 200 mls/hr Documented by: MK Pantoprazole Sodium (Protonix) 40 mg PO ACBREAKFAST DOROTHY Last Admin: 02/21/20 07:02 Dose: 40 mg Documented by: ARCENIO Sodium Chloride (Saline Flush) 2.5 ml FLUSH ASDIRECTED PRN PRN Reason: Keep Vein Open Vancomycin HCl (Pharmacy To Dose - Vancomycin) 1 dose .XX ASDIRECTED DOROT[facility]
[2020-02-19] MEDS: Heparin Sodium 5,000 Units/ML Vial SUBCUT SCH ×3 (12:18→23:39)
[2020-02-19] MEDS: Clindamycin Phosphate in D5W 600 MG in Premix Bag 1 BAG IV SCH ×4 (12:58→20:52)
[2020-02-19] MEDS ORDERED: Phosphorus #1 250 MG Tab PO ONE (15:07)
[2020-02-20] MEDS: Lactated Ringers 1,000 ML IV SCH (02:02)
[2020-02-20] MEDS: Clindamycin Phosphate in D5W 600 MG in Premix Bag 1 BAG IV SCH ×6 (04:31→23:18)
[2020-02-20 06:22] LABS: BLOOD UREA NITROGEN,BUN 6 mg/dL (7.0-18.0); CARBON DIOXIDE,CO2 21.1 mmol/L (21.0-32.0); CHLORIDE,CL 104 mmol/L (98-107); GLUCOSE RANDOM 112 mg/dL (74-106); POTASSIUM,K 3.9 mmol/L (3.5-5.1); SODIUM,NA 138 mmol/L (136-148)
[2020-02-20] MEDS ORDERED: Pantoprazole 40 MG in Sodium Chloride 0.9% 10 ML IV SCH (09:00)
--- NOTE | 2020-02-20 09:10 | PCM.PN ---
- General Info Date of Service: 02/20/20 Admission Dx/Problem (Free Text): Admission Diagnosis/Problem Admission Diagnosis/Problem Cellulitis of hand Subjective Update: Reports feeling better this morning, no fevers or chills. Hand is improving, still not to baseline. Slight increase in pain this morning. Continues to be swollen, but improved. Able to move wrist with no increased pain. Making a fist causes pain and still unable to make full fist. No chest pain or SOB. No diarrhea or abdominal pain. eating and drinking well. Functional Status: Reports: Pain Controlled, Tolerating Diet, Ambulating, Urinating - Review of Systems General: Reports: No Symptoms. Denies: Fever, Malaise HEENT: Reports: No Symptoms. Denies: Headaches, Visual Changes Pulmonary: Reports: No Symptoms. Denies: Shortness of Breath Cardiovascular: Reports: No Symptoms. Denies: Chest Pain Gastrointestinal: Reports: No Symptoms. Denies: Abdominal Pain, Diarrhea, Nausea, Vomiting Genitourinary: Reports: No Symptoms Musculoskeletal: Reports: Hand Pain (R hand with erythema, but improving) Neurological: Reports: No Symptoms Psychiatric: Reports: No Symptoms - Patient Data Vitals - Most Recent: Last Vital Signs Temp 98.2 F 02/20/20 03:41 Pulse 53 L 02/20/20 03:41 Resp 19 02/20/20 03:41 BP 136/86 02/20/20 03:41 Pulse Ox 97 02/20/20 03:41 Weight - Most Recent: 98.4 kg I&O - Last 24 Hours: Intake & Output 02/19/20 02/20/20 02/20/20 22:59 06:59 14:59 Intake Total 1973 185 Balance 1973 1855 Lab Results Last 24 Hours: Laboratory Results - last 24 hr 02/19/20 02/20/20 02/20/20 Range/Units 09:12 05:15 05:15 WBC 8.08 (4.0-11.0) K/uL RBC 4.09 L (4.50-5.90) M/uL Hgb 13.9 (13.0-17.0) g/dL Hct 41.9 (38.0-50.0) % MCV 102.4 H (80.0-98.0) fL MCH 34.0 H (27.0-32.0) pg MCHC 33.2 (31.0-37.0) g/dL RDW Std Deviation 52.7 (28.0-62.0) fl RDW Coeff of Rosalie 14 (11.0-15.0) % Plt Count 157 (150-400) K/uL MPV 10.20 (7.40-12.00) fL Neut % (Auto) 57.4 (48.0-80.0) % Lymph % (Auto) 29.5 (16.0-40.0) % Dubois % (Auto) 11.3 (0.0-15.0) % Eos % (Auto) 1.4 (0.0-7.0) % Baso % (Auto) 0.4 (0.0-1.5) % Neut # (Auto) 4.7 (1.4-5.7) K/uL Lymph # (Auto) 2.4 (0.6-2.4) K/uL Dubois # (Auto) 0.9 H (0.0-0.8) K/uL Eos # (Auto) 0.1 (0.0-0.7) K/uL Baso # (Auto) 0.0 (0.0-0.1) K/uL Nucleated RBC % 0.0 /100WBC Nucleated RBCs # 0 K/uL Lactate 0.7 (0.20-2.00) mmol/L Sodium 138 (136-148) mmol/L Potassium 3.9 (3.5-5.1) mmol/L Chloride 104 (98-107) mmol/L Carbon Dioxide 21.1 (21.0-32.0) mmol/L BUN 6 L (7.0-18.0) mg/dL Creatinine 1.0 (0.8-1.3) mg/dL Est Cr Clr Drug Dosing 87.19 mL/min Estimated GFR (MDRD) > 60.0 ml/min Glucose 112 H (74-106) mg/dL Calcium 8.8 (8.5-10.1) mg/dL Raghu Results Last 24 Hours: Microbiology 02/19/20 05:05 Aerobic Blood Culture - Preliminary Blood - Venous - Lab Draw NO GROWTH AFTER 1 DAY Anaerobic Blood Culture - Preliminary NO GROWTH AFTER 1 DAY 02/19/20 04:55 Aerobic Blood Culture - Preliminary Blood - Venous NO GROWTH AFTER 1 DAY Anaerobic Blood Culture - Preliminary NO GROWTH AFTER 1 DAY Med Orders - Current: Current Medications Acetaminophen (Tylenol Extra Strength) 500 mg PO Q6H PRN PRN Reason: Pain (mild 1-3) Heparin Sodium (Porcine) (Heparin Sodium) 5,000 units SUBCUT Q12H [facility] Last Admin: 02/19/20 23:39 Dose: Not Given Documented by: Lactated Ringer's (Ringers, Lactated) 1,000 mls @ 125 mls/hr IV ASDIRECTED [facility] Last Admin: 02/20/20 02:02 Dose: 125 mls/hr Documented by: Clindamycin Phosphate 600 mg/ (Premix) 50 mls @ 100 mls/hr IV Q8H [facility] Last Admin: 02/20/20 04:31 Dose: 100 mls/hr Documented by: Vancomycin HCl 1.5 gm/ Premix 300 mls @ 200 mls/hr IV Q12H [facility] Last Admin: 02/20/20 05:33 Dose: 200 mls/hr Documented by: Pantoprazole Sodium 40 mg/ (Sodium Chloride) 10 mls @ 300 mls/hr IV DAILY [facility] Morphine Sulfate (Morphine) 1 mg IVPUSH Q4H PRN PRN Reason: Pain (moderate 4-6) Last Admin: 02/20/20 04:37 Dose: 1 mg Documented by: Sodium Chloride (Saline Flush) 10 ml FLUSH ASDIRECTED PRN PRN Reason: Keep Vein Open Sodium Chloride (Saline Flush) 2.5 ml FLUSH ASDIRECTED PRN PRN Reason: Keep Vein Open Vancomycin HCl (Pharmacy To Dose - Vancomycin) 1 dose .XX ASDIRECTED [facility] Discontinued Medications Diphtheria/Tetanus/Acell Pertussis (Adacel) 0.5 ml IM .ONCE ONE Stop: 02/19/20 05:39 Last Admin: 02/19/20 06:33 Dose: 0.5 ml Documented by: Sodium Chloride (Normal Saline) 1,000 mls @ 999 mls/hr IV .Bolus ONE Stop: 02/19/20 05:26 Last Admin: 02/19/20 04:44 Dose: 999 mls/hr Documented by: Clindamycin Phosphate 600 mg/ (Premix) 50 mls @ 100 mls/hr IV ONETIME ONE Stop: 02/19/20 04:55 Last Admin: 02/19/20 06:31 Dose: 100 mls/hr Documented by: Vancomycin HCl 1.5 gm/ Premix 300 mls @ 300 mls/hr IV ONETIME ONE Stop: 02/19/20 05:11 Last Admin: 02/19/20 05:16 Dose: 300 mls/hr Documented by: Sodium Chloride (Normal Saline) 1,000 mls @ 999 mls/hr IV .Bolus ONE Stop: 02/19/20 06:42 Last Admin: 02/19/20 06:30 Dose: 999 mls/hr Documented by: Clindamycin Phosphate 600 mg/ (Premix) 50 mls @ 100 mls/hr IV Q8H [facility] Last Admin: 02/19/20 08:53 Dose: Not Given Documented by: Ketorolac Tromethamine (Toradol) 15 mg IVPUSH ONETIME ONE Stop: 02/19/20 04:27 Last Admin: 02/19/20 04:44 Dose: 15 mg Documented by: Morphine Sulfate (Morphine) 4 mg IVPUSH ONETIME ONE Stop: 02/19/20 04:27 Last Admin: 02/19/20 04:45 Dose: 4 mg Documented by: Ondansetron HCl (Zofran) 4 mg IVPUSH ONETIME ONE Stop: 02/19/20 04:27 Last Admin: 02/19/20 04:44 Dose: 4 mg Documented by: Sodium Phosphate (Neutra-Phos) 250 mg PO ONETIME ONE Stop: 02/19/20 15:08 Last Admin: 02/19/20 16:05 Dose: 250 mg Documented by: - Exam General: Alert, Oriented, Cooperative, No Acute Distress Lungs: Clear to Auscultation, Normal Respiratory Effort Cardiovascular: Regular Rate, Regular Rhythm GI/Abdominal Exam: Normal Bowel Sounds, Soft, Non-Tender, No Organomegaly Extremities: Normal Inspection, Normal Range of Motion, Non-Tender, No Pedal Edema Wound/Incisions: Drainage, Erythema (noted to R hand, mild tenderness to dorsum of hand. Erythema does not extend past wrist proximally and does no distally extend past MCP joints, abrasions noted to medial edge near CMC of 5th digit.) Neurological: No New Focal Deficit Psy/Mental Status: Alert, Normal Affect, Normal Mood Sepsis Event Note - Evaluation Sepsis Screening Result: No Definite Risk - Focused Exam Vital Signs: Vital Signs Temp Pulse Resp BP Pulse Ox 02/20/20 03:41 98.2 F 53 L 19 136/86 97 02/20/20 00:35 98 F 56 L 15 130/88 98 - Problem List & Annotations (1) Cellulitis of right hand SNOMED Code(s): 24263724 Code(s): L03.113 - CELLULITIS OF RIGHT UPPER LIMB Status: Acute Current Visit: Yes (2) HTN (hypertension) SNOMED Code(s): 01947943 Code(s): I10 - ESSENTIAL (PRIMARY) HYPERTENSION Status: Chronic Current Visit: Yes - Problem List Review Problem List Initiated/Reviewed/Updated: Yes - Plan Plan:: This 54 year odl male admitted with R hand cellulitis 1. Right hand cellulitis/non-purulent - Continues to show improvement, would still like to monitor as pain and swelling slow improvement. No fluctuance - continue Vancomycin and Clindamycin and monitor for response - BC negative for growth x 1 day - Tetnus in the ED prior to admission - Lactic acid normalized with IVFs - Stop IVFs, eating and drinking well - Add [place] PRN pain - CMS checks q12h - CT with contrast to R hand to insure no abscess. 2. HTN: - Stable, continue to monitor - Non complaint with Lisinopril at home VTE prophylaxis: Heparin Dispo: 1-2 days pending improvement
[2020-02-20] MEDS ORDERED: Sodium Chloride 0.9% 2.5 ML Syringe FLUSH PRN (09:28)
[2020-02-20] MEDS ORDERED: Acetaminophen/HYDROcodone 325-5 MG Tab PO PRN (09:29)
[2020-02-20] MEDS: Heparin Sodium 5,000 Units/ML Vial SUBCUT SCH ×2 (12:14→23:17)
[2020-02-20] MEDS ORDERED: Iopamidol 755 Mg/ML 100 ML Bottle IVPUSH STA (12:16)
--- NOTE | 2020-02-20 12:49 | CT ---
CT right hand Technique: Multiple axial sections through the right hand were obtained. Intravenous contrast was utilized. Findings: Mild areas of subcutaneous edema are noted most prominent around the left wrist and at the metacarpal level of the hand. Lesser edema within the subcutaneous tissues of the fingers. No focal fluid collections of abscess are seen. No bony erosions are identified. No acute bony fracture is appreciated. Impression: 1. Subcutaneous edema most likely relating to cellulitis. 2. No findings of osteomyelitis. No fluid collections of abscess are seen. Diagnostic code #3 This report was dictated in MDT
[2020-02-20] MEDS: Clindamycin HCl 150 MG Cap PO SCH (23:10)
[2020-02-21 06:19] LABS: BLOOD UREA NITROGEN,BUN 10 mg/dL (7.0-18.0); CARBON DIOXIDE,CO2 22.8 mmol/L (21.0-32.0); CHLORIDE,CL 104 mmol/L (98-107); GLUCOSE RANDOM 113 mg/dL (74-106); POTASSIUM,K 3.8 mmol/L (3.5-5.1); SODIUM,NA 139 mmol/L (136-148)
[2020-02-21] MEDS: Clindamycin HCl 150 MG Cap PO SCH (07:02)
[2020-02-21] MEDS ORDERED: Pantoprazole 40 MG Tab.CR PO SCH (07:30)
--- NOTE | 2020-02-21 08:39 | PCM.DCSUM1 ---
Discharge Summary - Hospital Course Brief History: 54 y.o male with PMH of HTN . non-compliant with his lisinopril. presenting with right hand pain , redness and swelling after pricking it on some thrones in his garden 2 -days earlier. Denies any fevers, chills, BA but does have some hard time making a fist secondary to swelling. Was plucking cucumbers but did poke his finger on some khoa. pt. is right hand dominant. Denies any other systemic symptoms. ED course :x-ray negative for any obvious bony involvement. Started on clindamycin + vancomycin. Bedside: denies any pain and or discomfort at this time. Still having a hard time making a full fist Diagnosis: Stroke: No Modified Nick Scale: No Symptoms at All Modified Washoe Scale Score: 0 - Discharge Data Discharge Date: 02/21/20 Discharge Disposition: Home, Self-Care 01 Condition: Good - Referral to Home Health Primary Care Physician: PCP None - Discharge Diagnosis/Problem(s) (1) Cellulitis of right hand SNOMED Code(s): 74037600 ICD Code: L03.113 - CELLULITIS OF RIGHT UPPER LIMB Status: Acute Current Visit: Yes (2) HTN (hypertension) SNOMED Code(s): 36460134 ICD Code: I10 - ESSENTIAL (PRIMARY) HYPERTENSION Status: Chronic Current Visit: Yes - Patient Summary/Data Hospital Course: Admitting Diagnoses: R hand cellulitis Discharge Diagnoses: R hand cellulitis Other PMH: HTN Kemal was admitted secondary to R hand swelling and erythema. He was placed on Clindamycin and Vancomycin. Leukocytosis improved, second day swelling and erythema improved, pain spiked slightly. CT of the hand obtained, which revealed mild edema, but no abscess or osteomyelitis. Antibiotics were continued, he continued to show significant improvement overnight. He is ready for discharge today, He will continue Clindamycin 450 mg Q8h PO at home for 5 more days. He is to return to the ED or clinic if concerns should arise with increase swelling, fevers or pain to R hand. - Patient Instructions Diet: Regular Diet as Tolerated Activity: As Tolerated, No Strenuous Activities Showering/Bathing: May Shower Notify Provider of: Fever, Increased Pain, Swelling and Redness, Drainage, Nausea and/or Vomiting Other/Special Instructions: Monitor for diarrhea - Discharge Plan *PRESCRIPTION DRUG MONITORING PROGRAM REVIEWED*: Not Applicable *COPY OF PRESCRIPTION DRUG MONITORING REPORT IN PATIENT SAHARA: Not Applicable Prescriptions/Med Rec: clindamycin HCL [Cleocin] 450 mg PO Q8H #63 cap Home Medications: Home Meds Lisinopril/Hydrochlorothiazide [Lisinopril-HCTZ 10-12.5 MG] 1 tab PO DAILY 02/19/20 [History] Acetaminophen [Tylenol Extra Strength] 500 mg PO Q6H PRN tablet 02/21/20 [Rx] clindamycin HCL [Cleocin] 450 mg PO Q8H #63 cap 02/21/20 [Rx] Oxygen Therapy Mode: Room Air Patient Handouts: Cellulitis, Adult, Clindamycin capsules Referrals: Joyce Hoyt NP [Nurse Practitioner] - 02/28/20 9:15 am (Alfredo was unavailable, follow up appointment has been made with Joyce Hoyt NP) - Discharge Summary/Plan Comment DC Time >30 min.: No - Patient Data Vitals - Most Recent: Last Vital Signs Temp 98.2 F 02/21/20 04:00 Pulse 55 L 02/21/20 04:00 Resp 20 02/21/20 04:00 BP 116/58 L 02/21/20 04:00 Pulse Ox 98 02/21/20 04:00 Weight - Most Recent: 98.4 kg I&O - Last 24 hours: Intake & Output 02/20/20 02/21/20 02/21/20 22:59 06:59 14:59 Intake Total 810 380 Balance 810 380 Lab Results - Last 24 hrs: Laboratory Results - last 24 hr 02/20/20 02/21/20 02/21/20 Range/Units 17:05 05:07 05:07 WBC 6.17 (4.0-11.0) K/uL RBC 4.33 L (4.50-5.90) M/uL Hgb 14.8 (13.0-17.0) g/dL Hct 43.9 (38.0-50.0) % MCV 101.4 H (80.0-98.0) fL MCH 34.2 H (27.0-32.0) pg MCHC 33.7 (31.0-37.0) g/dL RDW Std Deviation 51.3 (28.0-62.0) fl RDW Coeff of Rosalie 14 (11.0-15.0) % Plt Count 185 (150-400) K/uL MPV 10.00 (7.40-12.00) fL Neut % (Auto) 57.3 (48.0-80.0) % Lymph % (Auto) 28.4 (16.0-40.0) % Emmet % (Auto) 12.2 (0.0-15.0) % Eos % (Auto) 1.8 (0.0-7.0) % Baso % (Auto) 0.3 (0.0-1.5) % Neut # (Auto) 3.5 (1.4-5.7) K/uL Lymph # (Auto) 1.8 (0.6-2.4) K/uL Emmet # (Auto) 0.8 (0.0-0.8) K/uL Eos # (Auto) 0.1 (0.0-0.7) K/uL Baso # (Auto) 0.0 (0.0-0.1) K/uL Nucleated RBC % 0.0 /100WBC Nucleated RBCs # 0 K/uL Sodium 139 (136-148) mmol/L Potassium 3.8 (3.5-5.1) mmol/L Chloride 104 (98-107) mmol/L Carbon Dioxide 22.8 (21.0-32.0) mmol/L BUN 10 (7.0-18.0) mg/dL Creatinine 1.2 (0.8-1.3) mg/dL Est Cr Clr Drug Dosing 72.66 mL/min Estimated GFR (MDRD) > 60.0 ml/min Glucose 113 H (74-106) mg/dL Calcium 9.1 (8.5-10.1) mg/dL Vancomycin Trough 12.6 H (5.0-10.0) ug/mL SHERYL Results - Last 24 hrs: Microbiology 02/19/20 05:05 Aerobic Blood Culture - Preliminary Blood - Venous - Lab Draw NO GROWTH AFTER 2 DAYS Anaerobic Blood Culture - Preliminary NO GROWTH AFTER 2 DAYS 02/19/20 04:55 Aerobic Blood Culture - Preliminary Blood - Venous NO GROWTH AFTER 2 DAYS Anaerobic Blood Culture - Preliminary NO GROWTH AFTER 2 DAYS Med Orders - Current: Current Medications Acetaminophen (Tylenol Extra Strength) 500 mg PO Q6H PRN PRN Reason: Pain (mild 1-3) Hydrocodone Bitart/Acetaminophen ([place] 325-5 Mg) 1 tab PO Q4H PRN PRN Reason: Pain Last Admin: 02/20/20 18:37 Dose: 1 tab Documented by: Clindamycin HCl (Cleocin) 450 mg PO Q8H [facility] Last Admin: 02/21/20 07:02 Dose: 450 mg Documented by: Lisinopril/HCTZ (Lisinopril-Hctz 10-12.5 Mg) 1 tab PO DAILY [facility] Heparin Sodium (Porcine) (Heparin Sodium) 5,000 units SUBCUT Q12H [facility] Last Admin: 02/20/20 23:17 Dose: Not Given Documented by: Vancomycin HCl 1.5 gm/ Premix 300 mls @ 200 mls/hr IV Q12H [facility] Last Admin: 02/21/20 07:02 Dose: Not Given Documented by: Pantoprazole Sodium (Protonix) 40 mg PO ACBREAKFAST [facility] Last Admin: 02/21/20 07:02 Dose: 40 mg Documented by: Sodium Chloride (Saline Flush) 2.5 ml FLUSH ASDIRECTED PRN PRN Reason: Keep Vein Open Vancomycin HCl (Pharmacy To Dose - Vancomycin) 1 dose .XX ASDIRECTED [facility] Discontinued Medications Diphtheria/Tetanus/Acell Pertussis (Adacel) 0.5 ml IM .ONCE ONE Stop: 02/19/20 05:39 Last Admin: 02/19/20 06:33 Dose: 0.5 ml Documented by: Sodium Chloride (Normal Saline) 1,000 mls @ 999 mls/hr IV .Bolus ONE Stop: 02/19/20 05:26 Last Admin: 02/19/20 04:44 Dose: 999 mls/hr Documented by: Clindamycin Phosphate 600 mg/ (Premix) 50 mls @ 100 mls/hr IV ONETIME ONE Stop: 02/19/20 04:55 Last Admin: 02/19/20 06:31 Dose: 100 mls/hr Documented by: Vancomycin HCl 1.5 gm/ Premix 300 mls @ 300 mls/hr IV ONETIME ONE Stop: 02/19/20 05:11 Last Admin: 02/19/20 05:16 Dose: 300 mls/hr Documented by: Sodium Chloride (Normal Saline) 1,000 mls @ 999 mls/hr IV .Bolus ONE Stop: 02/19/20 06:42 Last Admin: 02/19/20 06:30 Dose: 999 mls/hr Documented by: Lactated Ringer's (Ringers, Lactated) 1,000 mls @ 125 mls/hr IV ASDIRECTED [facility] Last Admin: 02/20/20 02:02 Dose: 125 mls/hr Documented by: Clindamycin Phosphate 600 mg/ (Premix) 50 mls @ 100 mls/hr IV Q8H [facility] Last Admin: 02/19/20 08:53 Dose: Not Given Documented by: Clindamycin Phosphate 600 mg/ (Premix) 50 mls @ 100 mls/hr IV Q8H [facility] Last Admin: 02/20/20 23:18 Dose: Not Given Documented by: Pantoprazole Sodium 40 mg/ (Sodium Chloride) 10 mls @ 300 mls/hr IV DAILY [facility] Last Admin: 02/20/20 09:16 Dose: 300 mls/hr Documented by: Iopamidol (Isovue-[id number] (76%)) 75 ml IVPUSH ONETIME STA Stop: 02/20/20 12:17 Last Admin: 02/20/20 12:17 Dose: 75 ml Documented by: Ketorolac Tromethamine (Toradol) 15 mg IVPUSH ONETIME ONE Stop: 02/19/20 04:27 Last Admin: 02/19/20 04:44 Dose: 15 mg Documented by: Morphine Sulfate (Morphine) 4 mg IVPUSH ONETIME ONE Stop: 02/19/20 04:27 Last Admin: 02/19/20 04:45 Dose: 4 mg Documented by: Morphine Sulfate (Morphine) 1 mg IVPUSH Q4H PRN PRN Reason: Pain (moderate 4-6) Last Admin: 02/20/20 04:37 Dose: 1 mg Documented by: Ondansetron HCl (Zofran) 4 mg IVPUSH ONETIME ONE Stop: 02/19/20 04:27 Last Admin: 02/19/20 04:44 Dose: 4 mg Documented by: Sodium Chloride (Saline Flush) 10 ml FLUSH ASDIRECTED PRN PRN Reason: Keep Vein Open Sodium Chloride (Saline Flush) 2.5 ml FLUSH ASDIRECTED PRN PRN Reason: Keep Vein Open Sodium Phosphate (Neutra-Phos) 250 mg PO ONETIME ONE Stop: 02/19/20 15:08 Last Admin: 02/19/20 16:05 Dose: 250 mg Documented by:
[2020-02-21] MEDS ORDERED: Lisinopril/Hydrochlorothiazide 10-12.5 MG Tab PO SCH (09:00)
[2020-02-21 09:20] VITALS: BP 137/86; PULSE 52
== END 2020-02-21 13:20 | disposition home or self-care (01) ==
LOC: MW.ED 03:45 → MW.MS 06:03
PROVIDERS: ADMIT Student in an Organized Health Care Education/Training Program; ATTEND Student in an Organized Health Care Education/Training Program
DX: L03.113 Cellulitis of right upper limb (principal); I10 Essential (primary) hypertension; F17.210 Nicotine dependence, cigarettes, uncomplicated; R74.8 Abnormal levels of other serum enzymes; D53.9 Nutritional anemia, unspecified; Z23 Encounter for immunization; Z79.899 Other long term (current) drug therapy; Z20.828 Contact with and (suspected) exposure to other viral communicable diseases
CPT/HCPCS: 36415; 73130; 73201; 80048; 80053; 80202; 83036; 83605; 83735; 84100; 84145; 85025; 85652; 86140; 87040; 87635; 90471; 90715; 96361; 96365; 96375; 99284; A9270; C9113; J1644; J1885; J2270; J2405; J3370; J3490; J7030; J7050; J7120; Q9967; U0002

== ENCOUNTER 2020-09-27 01:19 | Emergency (ER) | payer OTHER, SELFPAY ==
[2020-09-27] MEDS ORDERED: Sodium Chloride 0.9% 10 ML Syringe FLUSH PRN (01:26)
[2020-09-27] MEDS ORDERED: Sodium Chloride 0.9% 2.5 ML Syringe FLUSH PRN (01:26)
[2020-09-27] MEDS ORDERED: Sodium Chloride 0.9% 1,000 ML IV ONE (01:26)
[2020-09-27] MEDS ORDERED: Ondansetron 4 MG/2 ML SDV IVPUSH ONE (01:26)
[2020-09-27] MEDS ORDERED: HYDROmorphone 1 MG/ML Syringe IVPUSH ONE (01:26)
[2020-09-27 01:27] VITALS: PULSE 71
[2020-09-27 01:50] LABS: BLOOD UREA NITROGEN,BUN 10 mg/dL (7.0-18.0); CARBON DIOXIDE,CO2 19.8 mmol/L (21.0-32.0); CHLORIDE,CL 103 mmol/L (98-107); GLUCOSE RANDOM 135 mg/dL (74-106); POTASSIUM,K 3.4 mmol/L (3.5-5.1); SODIUM,NA 139 mmol/L (136-148)
--- NOTE | 2020-09-27 02:27 | CT ---
INDICATION: Renal colic. COMPARISON: 02/17/2018 TECHNIQUE: CT examination of the abdomen and pelvis was performed without contrast enhancement using 2.5 mm thick axial sections from the lung bases through the pubic symphysis. Oral contrast was not administered. Please note that all CT scans at this facility use dose modulation, iterative reconstruction, and/or weight-based dosing when appropriate to reduce radiation dose to as low as reasonably achievable. FINDINGS: There is new mild right hydronephrosis and right hydroureter extending to the UVJ where there is a 2 millimeter calculus. There is no sign of any additional renal or ureteral calculus on the right. On the left, there is a 3 millimeter nonobstructive calculus in the anterior interpolar region. There is a nonobstructive 2 millimeter calculus in the left lower pole. Comparison 4 calculi cannot be with the previous CT since there is early contrast excretion into the collecting system on the previous study. There is no sign of left hydronephrosis or hydroureter. There is no sign of any renal mass on either side. In the abdomen, the unenhanced liver low-density region in the dome of the medial segment of the left lobe, segment 4A has slightly increased in size, now measuring 7 millimeters, previously 5 millimeters. This is probably a small cyst. The rest of the liver is normal in appearance. The spleen, pancreas, and adrenals are normal in appearance. Again seen is minimal cholelithiasis with a small floating calculus in the superior gallbladder fundus. The gallbladder is otherwise normal in appearance with no sign of acute cholecystitis. There is no sign of biliary ductal dilatation. The abdominal aorta is normal in caliber with no sign of dilatation. There is no sign of retroperitoneal mass or adenopathy. The stomach, loops of small bowel, and colon in the abdomen are normal in appearance. In the pelvis, the appendix is normal in appearance with no sign of inflammatory process. The loops of small bowel and colon in the pelvis are normal in appearance. The prostate has slightly increased in size and is now mildly enlarged. It is otherwise normal in appearance. The urinary bladder is normal in appearance. There is no sign of pelvic or inguinal mass or adenopathy. There is no sign of free air or free fluid in the abdomen or pelvis. The lung bases are clear. The osseous structures are normal in appearance for the patient`s age. IMPRESSION: New mild right hydronephrosis and right hydroureter produced by a new 2 millimeter right UVJ calculus. CT of the abdomen shows no other calculi in the right kidney. Two small nonobstructive calculi seen in the left kidney. No change in minimal cholelithiasis with no sign of acute cholecystitis. CT of the pelvis shows new mild enlargement of the prostate. Please note that all CT scans at this facility use dose modulation, iterative reconstruction, and/or weight-based dosing when appropriate to reduce radiation dose to as low as reasonably achievable. Dictated by Giuliano Cedillo MD @ Sep 27 2020 2:19AM Signed by Dr. Giuliano Cedillo @ Sep 27 2020 2:27AM
[2020-09-27] MEDS ORDERED: Tamsulosin 0.4 MG Cap.ER PO ONE (02:45)
--- NOTE | 2020-09-27 02:51 | EDM.PDOC ---
ED HPI GENERAL MEDICAL PROBLEM - General Chief Complaint: Abdominal Pain Stated Complaint: KIDNEY STONE Time Seen by Provider: 09/27/20 01:27 - History of Present Illness INITIAL COMMENTS - FREE TEXT/NARRATIVE: HISTORY AND PHYSICAL: History of present illness: This is a 55-year-old gentleman with a history significant for hypertension who presents ER today complaining of acute onset of right flank pain rating to his right groin that started earlier this evening. Patient reports the pain is severe in nature. Patient reports pain is colicky. Patient denies any recent fevers, shakes, chills. Patient does admit to nausea with no vomiting or diarrhea. Patient denies any chest pain or shortness of breath. Patient denies any melena or bright red blood per rectum. Patient denies any testicular pain. Patient has any hematuria, dysuria, frequency, urgency. Patient reports no prior similar pains. Patient denies any history of diabetes, liver, lung, kidney problems in the past. Patient denies any abdominal or chest surgeries in the past. Patient has no known drug allergies. Patient has any tobacco alcohol or drugs. Review of systems: As per history of present illness and below otherwise all systems reviewed and negative. Past medical history: As per history of present illness and as reviewed below otherwise noncontributory. Surgical history: As per history of present illness and as reviewed below otherwise noncontributory. Social history: No reported history of drug or alcohol abuse. Family history: As per history of present illness and as reviewed below otherwise noncontributory. Physical exam: This patient was seen and evaluated during the 2019 SARS-CoV-2 novel coronavirus pandemic period. Community viral transmission is ongoing at time of this encounter and the emergency department is operating under pandemic response procedures. Constitutional: Patient is oriented to person, place, and time. Appears well- developed and well-nourished. No distress. HEENT: Moist mucous membranes Head: Normocephalic and atraumatic Eyes: Right eye exhibits no discharge. Left eye exhibits no discharge. No scleral icterus Neck: Normal range of motion. No tracheal deviation present. Cardiovascular: Normal rate and regular rhythm. Pulmonary: Effort normal, no respiratory distress. Abd: Soft, nondistended, no rebound/guarding, no psoas or obturator signs, no tenderness at Mcberney's point, no Dinh's sign. Pt does not present with an exam that would be consistent with an acute surgical abdomen at this time, tenderness palpation to right flank and right abdominal pain. Musculoskeletal: Normal range of motion Neurologic: Alert and oriented to person, place and time. Skin: [place], warm and dry. Psychiatric: Normal mood and affect. Behavior is normal. Judgment and thought content normal. Nursing note and vital signs have been reviewed Diagnostics: CT of the abdomen pelvis reveals new mild right hydronephrosis with right hydroureter extending to the UVJ where there is a 2 mm calculus. There is no sign of any additional kidney or ureteral stone on the right. On the left there is a 3 mm nonobstructive calculus in the anterior interpolar region. There is a nonobstructive 2 mm calculus in the left lower pole. Patient's labs including CBC and CMP are within normal limits. Patient's urinalysis reveals large amount of blood. Therapeutics: NSS x1 L, Dilaudid 1 mg IV, patient received Toradol and fentanyl by EMS. Zofran 4 mg IV, Flomax 4 mg p.o. Assessment and plan: 55-year-old gentleman who presents ER today with signs and symptoms consistent with renal colic with CT evidence of right hydronephrosis secondary to a kidney stone that is 2 mm at the UVJ. Upon my reevaluation, the patient reports that his pain has nearly completely subsided. Patient be discharged home with a prescription for Flomax, Zofran, ibuprofen, [place] to assist with pain and discomfort until he is able to follow-up with urology. Reassessment at the time of disposition demonstrates that the patient is in no acute distress. The patient has remained stable throughout the entire ED visit and is without objective evidence for acute process requiring urgent intervention or hospitalization. The patient is stable for discharge, counseling is provided as documented above, discussed symptomatic treatment and specific conditions for return. I have spoken with the patient/caregiver and discussed todays findings, in addition to providing specific details for the plan of care. Questions are answered and there is agreement with the plan. Definitive disposition and diagnosis as appropriate pending reevaluation and review of above. 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 SPECIALIST: Reports: IV/IO Abdomen Pain Score (Numeric/FACES): 10 - Related Data Allergies Allergy/AdvReac Type Severity Reaction Status Date / Time No Known Allergies Allergy Verified 09/27/20 01:23 Home Meds: Home Meds Lisinopril/Hydrochlorothiazide [Lisinopril-HCTZ 10-12.5 MG] 1 tab PO DAILY 02/19/20 [History] Acetaminophen/HYDROcodone [[place] 325-5 MG] 1 tab PO Q6H PRN #12 tablet 09/27/20 [Rx] Ibuprofen 600 mg PO Q6HR PRN #30 tablet 09/27/20 [Rx] Ondansetron [Zofran ODT] 4 mg PO Q6H PRN #12 tab.dis 09/27/20 [Rx] Tamsulosin HCl [Flomax] 0.4 mg PO BEDTIME #7 cap.er.24h 09/27/20 [Rx] Past Medical History HEENT History: Reports: Impaired Vision Other HEENT History: wears glasses Cardiovascular History: Reports: High Cholesterol, Hypertension Respiratory History: Reports: None Gastrointestinal History: Reports: Colon Polyp, GI Bleed, Other (See Below) Genitourinary History: Reports: None Musculoskeletal History: Reports: Fracture Neurological History: Reports: None Psychiatric History: Reports: Anxiety Endocrine/Metabolic History: Reports: None Insulin Pump Model and Cancer Registry Manager: None Hematologic History: Reports: None Immunologic History: Reports: None Oncologic (Cancer) History: Reports: None Dermatologic History: Reports: None - Infectious Disease History Infectious Disease History: Reports: Measles Other Infectious Disease History: "possible Hep C" - Past Surgical History Head Surgeries/Procedures: Reports: None HEENT Surgical History: Reports: Oral Surgery Other HEENT Surgeries/Procedures: plastic repair of vestibule of mouth Cardiovascular Surgical History: Reports: None Respiratory Surgical History: Reports: None GI Surgical History: Reports: Colonoscopy Male Surgical History: Reports: None Endocrine Surgical History: Reports: None Neurological Surgical History: Reports: None Musculoskeletal Surgical History: Reports: Other (See Below) Other Musculoskeletal Surgeries/Procedures:: hx surgical repair of left ankle fx Dermatological Surgical History: Reports: None - Past Imaging History Past Imaging History: Reports: MRI (leg) Social & Family History - Family History Family Medical History: No Pertinent Family History - Caffeine Use Caffeine Use: Reports: None - Recreational Drug Use Recreational Drug Use: No ED ROS GENERAL - Review of Systems Review Of Systems: See Below ED EXAM, GENERAL - Physical Exam Exam: See Below Course - Vital Signs Last Recorded V/S: Last Vital Signs Temp 96.8 F L 09/27/20 01:20 Pulse 71 09/27/20 01:20 Resp 18 09/27/20 01:20 BP 133/92 H 09/27/20 01:20 Pulse Ox 96 09/27/20 01:20 - Orders/Labs/Meds Orders: Active Orders 24 hr Category Date Time Status Sodium Chloride 0.9% [Saline Flush] Med 09/27/20 01:26 Active 10 ml FLUSH ASDIRECTED PRN Sodium Chloride 0.9% [Saline Flush] Med 09/27/20 01:26 Active 2.5 ml FLUSH ASDIRECTED PRN Tamsulosin [Flomax] Med 09/27/20 02:45 Once 0.4 mg PO ONETIME ONE Saline Lock Insert [OM.PC] Stat Oth 09/27/20 01:26 Ordered Medication Orders Sodium Chloride (Sodium Chloride 0.9% 10 Ml Syringe) 10 ml FLUSH ASDIRECTED PRN PRN Reason: Keep Vein Open Sodium Chloride (Sodium Chloride 0.9% 2.5 Ml Syringe) 2.5 ml FLUSH ASDIRECTED PRN PRN Reason: Keep Vein Open Tamsulosin HCl (Tamsulosin 0.4 Mg Cap.Er) 0.4 mg PO ONETIME ONE Stop: 09/27/20 02:46 Labs: Laboratory Tests 09/27/20 09/27/20 09/27/20 Range/Units 01:15 01:15 01:45 WBC 8.49 (4.0-11.0) K/uL RBC 4.55 (4.50-5.90) M/uL Hgb 16.5 (13.0-17.0) g/dL Hct 46.9 (38.0-50.0) % MCV 103.1 H (80.0-98.0) fL MCH 36.3 H (27.0-32.0) pg MCHC 35.2 (31.0-37.0) g/dL RDW Std Deviation 54.6 (28.0-62.0) fl RDW Coeff of Rosalie 15 (11.0-15.0) % Plt Count 173 (150-400) K/uL MPV 9.10 (7.40-12.00) fL Neut % (Auto) 65.0 (48.0-80.0) % Lymph % (Auto) 23.0 (16.0-40.0) % [place] % (Auto) 10.6 (0.0-15.0) % Eos % (Auto) 1.2 (0.0-7.0) % Baso % (Auto) 0.2 (0.0-1.5) % Neut # (Auto) 5.5 (1.4-5.7) K/uL Lymph # (Auto) 2.0 (0.6-2.4) K/uL [place] # (Auto) 0.9 H (0.0-0.8) K/uL Eos # (Auto) 0.1 (0.0-0.7) K/uL Baso # (Auto) 0.0 (0.0-0.1) K/uL Sodium 139 (136-148) mmol/L Potassium 3.4 L (3.5-5.1) mmol/L Chloride 103 (98-107) mmol/L Carbon Dioxide 19.8 L (21.0-32.0) mmol/L BUN 10 (7.0-18.0) mg/dL Creatinine 1.2 (0.8-1.3) mg/dL Est Cr Clr Drug Dosing 71.82 mL/min Estimated GFR (MDRD) > 60.0 ml/min Glucose 135 H (74-106) mg/dL Calcium 8.4 L (8.5-10.1) mg/dL Total Bilirubin 1.4 H (0.2-1.0) mg/dL AST 19 (15-37) IU/L ALT 22 (14-63) IU/L Alkaline Phosphatase 78 (46-116) U/L Total Protein 7.2 (6.4-8.2) g/dL Albumin 3.3 L (3.4-5.0) g/dL Globulin 3.9 (2.6-4.0) g/dL Albumin/Globulin Ratio 0.9 (0.9-1.6) Urine Color DARK YELLOW Urine Appearance CLOUDY Urine pH 6.0 (5.0-8.0) Ur Specific [place] >= 1.030 (1.001-1.035) Urine Protein 100 H (NEGATIVE) mg/dL Urine Glucose (UA) NEGATIVE (NEGATIVE) mg/dL Urine Ketones 15 H (NEGATIVE) mg/dL Urine Occult Blood LARGE H (NEGATIVE) Urine Nitrite NEGATIVE (NEGATIVE) Urine Bilirubin MODERATE H (NEGATIVE) Urine Ictotest POSITIVE Urine Urobilinogen 2.0 H (<2.0) EU/dL Ur Leukocyte Esterase NEGATIVE (NEGATIVE) Urine RBC 31-33 (0-2/HPF) Urine WBC 0-1 (0-5/HPF) Ur Epithelial Cells RARE (NONE-FEW) Urine Bacteria FEW (NEGATIVE) Urine Mucus LIGHT (NONE-MOD) Meds: Medications Generic Name Dose Route Start Last Admin Trade Name Freq PRN Reason Stop Dose Admin Sodium Chloride 10 ml 09/27/20 01:26 Sodium Chloride 0.9% 10 Ml Syringe FLUSH ASDIRECTED PRN Keep Vein Open Sodium Chloride 2.5 ml 09/27/20 01:26 Sodium Chloride 0.9% 2.5 Ml Syringe FLUSH ASDIRECTED PRN Keep Vein Open Tamsulosin HCl 0.4 mg 09/27/20 02:45 Tamsulosin 0.4 Mg Cap.Er PO 09/27/20 02:46 ONETIME ONE Discontinued Medications Generic Name Dose Route Start Last Admin Trade Name Govindq PRN Reason Stop Dose Admin Hydromorphone HCl 1 mg 09/27/20 01:26 09/27/20 01:37 Hydromorphone 1 Mg/Ml Syringe IVPUSH 09/27/20 01:27 1 mg ONETIME ONE Administration Sodium Chloride 1,000 mls @ 999 mls/hr 09/27/20 01:26 09/27/20 01:36 Normal Saline IV 09/27/20 02:26 999 mls/hr .Bolus ONE Administration Ondansetron HCl 4 mg 09/27/20 01:26 09/27/20 01:37 Ondansetron 4 Mg/2 Ml Sdv IVPUSH 09/27/20 01:27 4 mg ONETIME ONE Administration Departure - Departure Time of Disposition: 02:49 Disposition: Home, Self-Care 01 Condition: Good Clinical Impression: Renal colic on right side Hydronephrosis Qualifiers: Hydronephrosis type: with ureteral calculous obstruction Qualified Code(s): N13.2 - Hydronephrosis with renal and ureteral calculous obstruction - Discharge Information Instructions: Renal Colic, [id number], Hydronephrosis Referrals: PCP,None [Primary Care Provider] - Additional Instructions: You were seen and evaluated in the ER today secondary to severe pain on your right side. This pain was found to be secondary to a 2 mm kidney stone that is at the right side of your ureter at the junction of your bladder. You will be discharged home with pain medicines and Flomax to take to assist with passing the stone. You will also be given the phone number for the urology clinic to call to make an appointment to see Dr. Villeda for further evaluation. [facility] - Urology [address] [place] [id number] The following information is given to patients seen in the emergency department who are being discharged to home. This information is to outline your options for follow-up care. We provide all patients seen in our emergency department with a follow-up referral. The need for follow-up, as well as the timing and circumstances, are variable depending upon the specifics of your emergency department visit. If you don't have a primary care physician on staff, we will provide you with a referral. We always advise you to contact your personal physician following an emergency department visit to inform them of the circumstance of the visit and for follow-up with them and/or the need for any referrals to a consulting specialist. The emergency department will also refer you to a specialist when appropriate. This referral assures that you have the opportunity for follow-up care with a specialist. All of these measure are taken in an effort to provide you with optimal care, which includes your follow-up. Under all circumstances we always encourage you to contact your private physician who remains a resource for coordinating your care. When calling for follow-up care, please make the office aware that this follow-up is from your recent emergency room visit. If for any reason you are refused follow-up, please contact the [facility] Emergency Department at and asked to speak to the emergency department charge nurse. [facility] - Primary Care [address] [place] [id number] [facility] [address] [place] [id number] Sepsis Event Note (ED) - Evaluation Sepsis Screening Result: No Definite Risk - Focused Exam Vital Signs: Vital Signs Temp Pulse Resp BP Pulse Ox 09/27/20 01:20 96.8 F L 71 18 133/92 H 96 - My Orders Last 24 Hours: My Active Orders 09/27/20 01:26 Sodium Chloride 0.9% [Saline Flush] 10 ml FLUSH ASDIRECTED PRN Sodium Chloride 0.9% [Saline Flush] 2.5 ml FLUSH ASDIRECTED PRN Saline Lock Insert [OM.PC] Stat 09/27/20 02:45 Tamsulosin [Flomax] 0.4 mg PO ONETIME ONE - Assessment/Plan Last 24 Hours: My Active Orders 09/27/20 01:26 Sodium Chloride 0.9% [Saline Flush] 10 ml FLUSH ASDIRECTED PRN Sodium Chloride 0.9% [Saline Flush] 2.5 ml FLUSH ASDIRECTED PRN Saline Lock Insert [OM.PC] Stat 09/27/20 02:45 Tamsulosin [Flomax] 0.4 mg PO ONETIME ONE
[2020-09-27] MEDS ORDERED: HYDROmorphone 1 MG/ML Syringe IM ONE (03:08)
[2020-09-27] MEDS ORDERED: HYDROmorphone 1 MG/ML Syringe ONE (03:08)
[2020-09-27 03:44] VITALS: BP 123/73
== END 2020-09-27 03:15 | disposition home or self-care (01) ==
LOC: MW.ED 01:19
DX: N13.2 Hydronephrosis with renal and ureteral calculous obstruction (principal); I10 Essential (primary) hypertension
CPT/HCPCS: 36415; 74176; 80053; 81001; 85025; 96372; 96374; 96375; 99285; A9270; J1170; J2405; J7030

== ENCOUNTER 2020-12-26 22:09 | Emergency (ER) | payer SELFPAY ==
[2020-12-26] MEDS ORDERED: Lactated Ringers 1,000 ML IV ONE (22:19)
[2020-12-26 23:11] LABS: ACETAMINOPHEN <2.0 ug/mL; BLOOD UREA NITROGEN,BUN 9 mg/dL (7.0-18.0); CARBON DIOXIDE,CO2 17.6 mmol/L (21.0-32.0); CHLORIDE,CL 102 mmol/L (98-107); GLUCOSE RANDOM 102 mg/dL (74-106); POTASSIUM,K 3.2 mmol/L (3.5-5.1); SODIUM,NA 136 mmol/L (136-148)
[2020-12-26] MEDS ORDERED: Potassium Chloride Riders 40 MEQ in Premix Bag 1 BAG IV ONE (23:14)
--- NOTE | 2020-12-26 23:14 | CR ---
INDICATION: Chest pain TECHNIQUE: Single view chest. FINDINGS: The lungs are clear. The heart, mediastinum and pulmonary vessels are of normal size. There is no evidence of pleural disease. IMPRESSION: Negative chest. Dictated by Nita Vasquez MD @ 12/26/2020 11:14:[address] Nita Vasquez @ Dec 26 2020 11:14PM
[2020-12-26] MEDS ORDERED: Iopamidol 755 MG/ML 500 ML Multipack Bottle IVPUSH ONE (23:16)
[2020-12-27] MEDS ORDERED: Heparin Sodium 5,000 Units/ML Vial IVPUSH ONE (00:01)
--- NOTE | 2020-12-27 00:05 | CT ---
INDICATION: Chest pain TECHNIQUE: CT chest PE was acquired with 100 cc Isovue 370 intravenous contrast. COMPARISON: None. FINDINGS: Heart and vasculature: Extensive filling defects involving the pulmonary arteries extending through the main pulmonary artery consistent with a saddle pulmonary embolus. RV/LV ratio 1.18. No pericardial effusion. Thoracic aorta is normal in caliber. Lungs and pleural: No pleural effusion or pneumothorax. Peripheral ground-glass opacities within both lungs with some dense consolidation in the subpleural region in the left lower lobe. Lymph nodes/mediastinum: No mediastinal, hilar, or axillary adenopathy. Chest wall: No masses. Upper abdomen: Cholelithiasis without pericholecystic inflammation. Colonic diverticulosis. Bones: Unremarkable for age. IMPRESSION: 1. Acute saddle pulmonary embolus with a subjectively large clot burden. Elevated RV/LV ratio consistent with right heart strain. 2. Peripheral consolidation and ground-glass opacities within both lungs. Differential diagnosis includes subsegmental atelectasis/evolving infarct, pneumonitis or viral pneumonia. Results called to Dr. Moreno at 0000 on 12/27/[address] note that all CT scans at this facility use dose modulation, iterative reconstruction, and/or weight-based dosing when appropriate to reduce radiation dose to as low as reasonably achievable. Dictated by Dennys Sampson MD @ 12/27/2020 12:04:[address] Dennys Sampson @ Dec 27 2020 12:04AM
[2020-12-27] MEDS ORDERED: Heparin Sodium/0.45% NaCl 500 ML IV SCH (00:15)
--- NOTE | 2020-12-27 00:47 | EDM.PDOC ---
ED HPI GENERAL MEDICAL PROBLEM - General Chief Complaint: Chest Pain Stated Complaint: CARDIAC ARITHMIA Time Seen by Provider: 12/26/20 22:13 - History of Present Illness INITIAL COMMENTS - FREE TEXT/NARRATIVE: CHIEF COMPLAINT(S): Shortness of breath HISTORY OF PRESENT ILLNESS: This is a 55-year-old man with a past medical history of hypertension who presents to the emergency department as a medical resuscitation via EMS with a chief complaint of shortness of breath. Per EMS: The had called EMS as the patient was laying on the ground. The patient reported that he was feeling crappy for the last 3 days and he passed out and stayed laying on the ground as this was what helped him feel like he was not dying. They state that he was complaining of chest tightness, shortness of breath and he was diaphoretic and clammy. They stated they gave him 324 mg of aspirin, 500 mL normal saline bolus and did provide him with 0.4 mg of nitro which caused his blood pressure to decrease however it has returned to normal since arrival. The patient states that he just recently drove back from [place]. He states that approximately 3 days ago he passed out and since that time he has been feeling not well. He states that he feels short of breath and the only thing that makes him feel better is laying flat on the ground especially on the left side. He states that he has had some chest tightness located under his nipple on the left and then it went away and then it became apparent again today under his nipple on the right. He states that he has had increased cough for the last 3 days which is nonproductive. He denies any fevers, chills, Covid exposures. He denies any prior history of DVT or PE. He denies any history of CAD or CHF. He denies any current pain. He denies any lower extremity edema or extremity pain. He states that he was a prior smoker and quit approximately 3 days ago as he has not been feeling well. REVIEW OF SYSTEMS: Constitutional: Positive for not feeling well. Denies fever, chills. Eyes: Denies eye pain Ears, Nose, Mouth, & Throat: Denies earache Cardiovascular: Positive for intermittent bilateral chest tightness under the nipple Respiratory: Positive for shortness of breath and nonproductive cough Gastrointestinal: Denies Nausea, vomiting, diarrhea, hematochezia. Genitourinary: Denies hematuria Skin:Denies a rash Neurological: Denies blurred vision, numbness, tingling, weakness Psychiatric: Denies depression PAST MEDICAL HISTORY: As per history of present illness and as reviewed below otherwise noncontributory. SURGICAL HISTORY: As per history of present illness and as reviewed below otherwise noncontributory. SOCIAL HISTORY: As per history of present illness and as reviewed below otherwise noncontributory. FAMILY HISTORY: As per history of present illness and as reviewed below otherwise noncontributory. EXAMINATION OF ORGAN SYSTEMS/BODY AREAS: VITALS: Blood pressure is 107/74, heart rate 111, respiratory rate 20 with an oxygen saturation of 94% on 2 L nasal cannula. Temperature 37.0.. GENERAL: This is a middle-aged gentleman who is in a moderate amount of respiratory distress who is diaphoretic. HEAD: Normocephalic, atraumatic. EYES: EOMs intact. PERRL. ENT. External ears WNL. Nares patent. Oropharynx is clear with no erythema or exudate. No uvular or tongue swelling. NECK: Supple, no masses. Trachea is midline. LUNGS: The patient is tachypneic without any stridor. There is no wheezing, rales or rhonchi. No abnormality on lung exam. CARDIOVASCULAR: Tachycardic but regular. No murmurs, rubs, gallops. No edema. No JVD. ABDOMEN: Soft, non-distended, non-tender. Bowel sounds present in all 4 quadrants. No rebound tenderness, guarding, or peritoneal signs. MUSCULOSKELETAL: No deformity. Patient is moving all 4 limbs spontaneously. NEUROLOGICAL: Alert and oriented x 3. No focal neurological deficits noted. SKIN: No rashes, or pallor. No signs of injury. Patient's upper body is red. MEDICAL DECISION MAKING AND COURSE IN THE ED WITH INTERPRETATION/REVIEW OF DIAGNOSTIC STUDIES: This is a 55-year-old man with a past medical history of hypertension who presents to the emergency department as a medical resuscitation via EMS with shortness of breath, intermittent chest tightness and a history of syncope who is diaphoretic. Immediately upon entering the resuscitation room the patient was disrobed, placed on continuous cardiac monitoring, and IV access was established by nursing. Patient is able to speak thus displaying a patent airway, breath sounds are equal bilaterally, and patient has palpable pulses in all 4 extremities. At this time the patient was hypoxic therefore we have provided the patient with 2 L nasal cannula and pulse oximetry with good waveform was 94%. Patient's blood pressure was normal and monitor tech revealed sinus rhythm at a rate of 111. At this time we did obtain an EKG which did not reveal any acute signs of ischemia. Given the syncope, diaphoresis, tachycardia we will undergo a cardiac work-up. Will obtain CBC, CMP, coags, lactic acid, troponin, TSH. We will also obtain salicylates, Tylenol and alcohol. Will obtain a Covid swab given the hypoxia. Will obtain a chest x- ray. In addition given the long drive we will obtain a CT of angiogram of the chest as I do believe this could be a pulmonary embolism. Ddx: ACS, Pulmonary Embolism, Pneumonia Laboratory: CBC reveals a macrocytosis with an MCV of 107.4 and thrombocytopenia with a platelet count of 123. INR is normal at 1.06. CMP reveals hypokalemia at 3.2, metabolic acidosis with a bicarbonate of 17.6, hypocalcemia 8.2, hyperbilirubinemia at 1 4 and hypoalbuminemia at 3.0. Lactic acid is 3.0 and troponin is elevated at 0.382. Serum salicylates are 5.3, serum alcohol is 98. Serum Tylenol is negative. Covid is negative. The radiological images were viewed by myself along with reading the report from the radiologist. Chest x-ray did not reveal any acute cardiopulmonary process. On reevaluation the patient did have a short lasting decrease in his blood pressure with a MAP greater than 65 however this did not last any longer than 5 minutes and it returned back to normal. At this time I did discuss that I would like him to go to CT as soon as possible. In addition we did repeat an EKG which was unchanged from prior After patient returned from CT I did review the patient's CT angiogram and it does appear that the patient has a saddle pulmonary embolism extensively in both lungs. At this time I did have radiology contact your also I could speak with radiology directly. In the interim I did perform a bedside ultrasound to evaluate for right heart strain. Bedside cardiac ultrasound. Bedside cardiac ultrasound revealed normal ejection fraction. There is no pericardial effusion. There did appear to be a mild D sign suggesting RV enlargement. TAPSE was decreased at 1.42. Interpretation: Likely right heart strain I did speak with radiology. As discussed with my prior read the patient does have extensive pulmonary embolism in both lobes. At this time the patient does not have a contraindication to TPA however the patient's blood pressure is normal, his oxygen saturation is appropriate therefore I do not believe TPA is indicated at this time. We will start the patient on a heparin drip and provide him with a heparin bolus. I did discuss the results with the patient and his at bedside. I contacted [facility] in [place] and given the elevated troponin and pulmonary embolism Dr. Montelongo accepted the patient for transfer. The patient will be transferred via helicopter. DISPOSITION: The patient was transferred to [facility] in [place] and stable yet serious condition CONDITION: Serious PROCEDURES: Bedside cardiac ultrasound, Cardiac monitoring/Pulse oximetry interpretation FINAL IMPRESSION(S)/DIAGNOSES: 1. Acute hypoxic respiratory failure secondary to saddle pulmonary embolism 2. Acute saddle pulmonary embolism 3. Acute metabolic acidosis secondary to lactic acidosis likely secondary to #1 4. Acute elevated troponin likely secondary to #1 and #2 5. Acute hypokalemia 6. Macrocytosis likely secondary to alcohol use 7. Thrombocytopenia likely secondary to alcohol use 8. Hyperbilirubinemia likely secondary to alcohol use 9. Hypoalbuminemia likely secondary to alcohol use 10. Acute alcohol intoxication Critical Care Procedure Note Authorized and performed by: Amos Moreno M.D. Critical Care Time: 125 minutes Due to a high probability of clinically significant, life threatening deterioration, the patient required my highest level of preparedness to intervene emergently and I personally spent this critical care time directly and personally managing the patient. This critical care time included obtaining a history, examining the patient, pulse oximetry; ordering and review of studies; arranging urgent treatment with development of a management plan; evaluation of a patients reponse to treatment; frequent assessment; and discussions with other providers. This critical care time was performed to assess and manage the high probability of imminent, life threatening deterioration that could result in multiorgan failure. It was exclusive of separate billable procedures and treating other patients. Please see MDM section and rest of the note for further information on patient assessment and treatment. Please see MDM section and rest of the note for further information on patient assessment and treatment. Treatments HOGSHEAD SALVAGE: Reports: Aspirin, IV/IO, Nitroglycerin, Other (see below) Other Treatments HOGSHEAD SALVAGE: 324 mg ASA and 0.4 mg Nitro x 1, 500 mL NS bolus Left Upper Chest Pain Score (Numeric/FACES): 3 - Related Data Allergies Allergy/AdvReac Type Severity Reaction Status Date / Time No Known Allergies Allergy Verified 12/26/20 22:17 Home Meds: Home Meds . 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: None Hematologic History: Reports: None Immunologic History: Reports: None Oncologic (Cancer) History: Reports: None Dermatologic History: Reports: None - Infectious Disease History Infectious Disease History: Reports: Measles Other Infectious Disease History: "possible Hep C" - Past Surgical History Head Surgeries/Procedures: Reports: None HEENT Surgical History: Reports: Oral Surgery Other HEENT Surgeries/Procedures: plastic repair of vestibule of mouth Cardiovascular Surgical History: Reports: None Respiratory Surgical History: Reports: None GI Surgical History: Reports: Colonoscopy Male Surgical History: Reports: None Endocrine Surgical History: Reports: None Neurological Surgical History: Reports: None Musculoskeletal Surgical History: Reports: Other (See Below) Other Musculoskeletal Surgeries/Procedures:: hx surgical repair of left ankle fx Dermatological Surgical History: Reports: None - Past Imaging History Past Imaging History: Reports: MRI (leg) Social & Family History - Family History Family Medical History: No Pertinent Family History - Caffeine Use Caffeine Use: Reports: None - Recreational Drug Use Recreational Drug Use: No ED ROS GENERAL - Review of Systems Review Of Systems: See Below ED EXAM, GENERAL - Physical Exam Exam: See Below Course - Vital Signs Last Recorded V/S: Last Vital Signs Temp 37.0 C 12/26/20 22:11 Pulse 93 12/27/20 00:48 Resp 20 12/27/20 00:48 BP 139/75 12/27/20 00:48 Pulse Ox 96 12/27/20 00:09 - Orders/Labs/Meds Labs: Laboratory Tests 12/26/20 12/26/20 12/26/20 Range/Units 22:26 22:26 22:26 WBC 9.85 (4.0-11.0) K/uL RBC 4.30 L (4.50-5.90) M/uL Hgb 16.3 (13.0-17.0) g/dL Hct 46.2 (38.0-50.0) % MCV 107.4 H (80.0-98.0) fL MCH 37.9 H (27.0-32.0) pg MCHC 35.3 (31.0-37.0) g/dL RDW Std Deviation 64.1 H (28.0-62.0) fl RDW Coeff of Rosalie 16 H (11.0-15.0) % Plt Count 123 L (150-400) K/uL MPV 9.90 (7.40-12.00) fL Neut % (Auto) 67.0 (48.0-80.0) % Lymph % (Auto) 19.7 (16.0-40.0) % Barber % (Auto) 11.7 (0.0-15.0) % Eos % (Auto) 1.3 (0.0-7.0) % Baso % (Auto) 0.3 (0.0-1.5) % Neut # (Auto) 6.6 H (1.4-5.7) K/uL Lymph # (Auto) 1.9 (0.6-2.4) K/uL Barber # (Auto) 1.2 H (0.0-0.8) K/uL Eos # (Auto) 0.1 (0.0-0.7) K/uL Baso # (Auto) 0.0 (0.0-0.1) K/uL Nucleated RBC % 0.0 /100WBC Nucleated RBCs # 0 K/uL INR 1.06 APTT (18.6-31.3) SEC Sodium 136 (136-148) mmol/L Potassium 3.2 L (3.5-5.1) mmol/L Chloride 102 (98-107) mmol/L Carbon Dioxide 17.6 L (21.0-32.0) mmol/L BUN 9 (7.0-18.0) mg/dL Creatinine 1.2 (0.8-1.3) mg/dL Est Cr Clr Drug Dosing TNP Estimated GFR (MDRD) > 60.0 ml/min Glucose 102 (74-106) mg/dL Lactic Acid (0.4-2.0) mmol/L Calcium 8.2 L (8.5-10.1) mg/dL Magnesium 2.1 (1.8-2.4) mg/dL Total Bilirubin 1.4 H (0.2-1.0) mg/dL AST 21 (15-37) IU/L ALT 21 (14-63) IU/L Alkaline Phosphatase 79 (46-116) U/L Creatine Kinase 96 (26-308) U/L Troponin I 0.382 H* (0.000-0.056) ng/mL Total Protein 6.9 (6.4-8.2) g/dL Albumin 3.0 L (3.4-5.0) g/dL Globulin 3.9 (2.6-4.0) g/dL Albumin/Globulin Ratio 0.8 L (0.9-1.6) TSH, Ultra Sensitive 0.89 (0.36-3.74) uIU/mL Salicylates 5.3 (0-20) mg/dL Acetaminophen <2.0 ug/mL Ethyl Alcohol 98 mg/dL SARS-CoV-2 RNA (GUI) (NEGATIVE) 12/26/20 12/26/20 12/27/20 Range/Units 22:26 22:40 00:25 WBC (4.0-11.0) K/uL RBC (4.50-5.90) M/uL Hgb (13.0-17.0) g/dL Hct (38.0-50.0) % MCV (80.0-98.0) fL MCH (27.0-32.0) pg MCHC (31.0-37.0) g/dL RDW Std Deviation (28.0-62.0) fl RDW Coeff of Rosalie (11.0-15.0) % Plt Count (150-400) K/uL MPV (7.40-12.00) fL Neut % (Auto) (48.0-80.0) % Lymph % (Auto) (16.0-40.0) % Barber % (Auto) (0.0-15.0) % Eos % (Auto) (0.0-7.0) % Baso % (Auto) (0.0-1.5) % Neut # (Auto) (1.4-5.7) K/uL Lymph # (Auto) (0.6-2.4) K/uL Barber # (Auto) (0.0-0.8) K/uL Eos # (Auto) (0.0-0.7) K/uL Baso # (Auto) (0.0-0.1) K/uL Nucleated RBC % /100WBC Nucleated RBCs # K/uL INR APTT 25.4 (18.6-31.3) SEC Sodium (136-148) mmol/L Potassium (3.5-5.1) mmol/L Chloride (98-107) mmol/L Carbon Dioxide (21.0-32.0) mmol/L BUN (7.0-18.0) mg/dL Creatinine (0.8-1.3) mg/dL Est Cr Clr Drug Dosing Estimated GFR (MDRD) ml/min Glucose (74-106) mg/dL Lactic Acid 3.0 H* (0.4-2.0) mmol/L Calcium (8.5-10.1) mg/dL Magnesium (1.8-2.4) mg/dL Total Bilirubin (0.2-1.0) mg/dL AST (15-37) IU/L ALT (14-63) IU/L Alkaline Phosphatase (46-116) U/L Creatine Kinase (26-308) U/L Troponin I (0.000-0.056) ng/mL Total Protein (6.4-8.2) g/dL Albumin (3.4-5.0) g/dL Globulin (2.6-4.0) g/dL Albumin/Globulin Ratio (0.9-1.6) TSH, Ultra Sensitive (0.36-3.74) uIU/mL Salicylates (0-20) mg/dL Acetaminophen ug/mL Ethyl Alcohol mg/dL SARS-CoV-2 RNA (GUI) NEGATIVE (NEGATIVE) Meds: Medications Discontinued Medications Generic Name Dose Route Start Last Admin Trade Name Freq PRN Reason Stop Dose Admin Heparin Sodium (Porcine) 5,000 units 12/27/20 00:01 12/27/20 00:35 Heparin Sodium 5,000 Units/Ml Vial IVPUSH 12/27/20 00:02 5,000 units ONETIME ONE Administration Lactated Ringer's 1,000 mls @ 999 mls/hr 12/26/20 22:19 12/26/20 22:26 Ringers, Lactated IV 12/26/20 23:19 999 mls/hr .BOLUS ONE Administration Potassium Chloride 40 meq/ 100 mls @ 25 mls/hr 12/26/20 23:14 12/26/20 23:55 Premix IV 12/27/20 03:13 25 mls/hr ONETIME ONE Administration Heparin Sodium/Sodium Chloride 500 mls @ 35.924 mls/hr 12/27/20 00:15 12/27/20 00:33 Heparin 25,000 Units In 1/2 Ns 500 Ml IV 18 units/kg/hr TITRATE DOROTHY 35.924 mls/hr Administration Protocol 18 UNITS/KG/HR Iopamidol 100 ml 12/26/20 23:16 12/26/20 23:37 Iopamidol 755 Mg/Ml 500 Ml Multipack Bottle IVPUSH 12/26/20 23:17 100 ml ONETIME ONE Administration Departure - Departure Time of Disposition: 01:00 Disposition: DC/Tfer to Acute Hospital 02 Condition: Fair, Serious Clinical Impression: Saddle pulmonary embolus - Discharge Information Referrals: PCP,None [Primary Care Provider] - Forms: ED Department Discharge Sepsis Event Note (ED) - Evaluation Sepsis Screening Result: No Definite Risk - Focused Exam Vital Signs: Vital Signs Temp Temp Pulse Resp BP Pulse Ox 12/27/20 00:48 93 20 139/75 12/27/20 00:09 102 H 20 138/96 H 96 12/26/20 23:40 102 H 20 121/84 93 L 12/26/20 22:51 84/60 L 96 12/26/20 22:11 36.8 C 37.0 C 111 H 20 107/74 94 L
[2020-12-27 00:49] VITALS: BP 139/75; PULSE 93
--- NOTE | 2020-12-27 07:52 | PCM.EKG ---
#1 Interpretation EKG Date: 12/26/20 Time: 22:45 Rhythm: NSR Rate (Beats/Min): 103 [place]: Normal P-Wave: Present QRS: Normal ST-T: Normal (T wave inversion in V2, V3) QT: Normal Comparison: Change From Previous EKG (02/27/18) EKG Interpretation Comments: Sinus Rhythm with nonspecific T wave inversion #2 Interpretation EKG Date: 12/26/20 Time: 22:08 Rhythm: NSR Rate (Beats/Min): 107 [place]: Normal P-Wave: Present QRS: Normal ST-T: Normal QT: Normal Comparison: No Change (02/17/18) EKG Interpretation Comments: Sinus Tachycardia
== END 2020-12-27 01:10 ==
LOC: MW.ED 22:09
DX: I26.99 Other pulmonary embolism without acute cor pulmonale (principal); J96.01 Acute respiratory failure with hypoxia; E87.2 Acidosis; E87.6 Hypokalemia; R79.89 Other specified abnormal findings of blood chemistry; D69.6 Thrombocytopenia, unspecified; F10.129 Alcohol abuse with intoxication, unspecified; E80.6 Other disorders of bilirubin metabolism; D75.89 Other specified diseases of blood and blood-forming organs; E78.00 Pure hypercholesterolemia, unspecified; I10 Essential (primary) hypertension; E66.9 Obesity, unspecified; Z68.30 Body mass index [BMI] 30.0-30.9, adult; Z20.822 Contact with and (suspected) exposure to COVID-19; Y90.4 Blood alcohol level of 80-99 mg/100 ml
CPT/HCPCS: 36415; 71045; 71275; 80053; 80143; 80179; 80307; 82550; 83605; 83735; 84443; 84484; 85025; 85610; 85730; 87635; 93005; 96365; 96367; 99291; 99292; J1644; J3480; J7120; Q9967; U0002

== ENCOUNTER 2021-01-02 06:16 | Emergency (ER) | payer SELFPAY ==
[2021-01-02] MEDS ORDERED: Sodium Chloride 0.9% 2.5 ML Syringe FLUSH PRN (06:42)
[2021-01-02] MEDS ORDERED: Sodium Chloride 0.9% 10 ML Syringe FLUSH PRN (06:42)
[2021-01-02] MEDS ORDERED: Ondansetron 4 MG/2 ML SDV IVPUSH ONE (06:46)
[2021-01-02 07:02] LABS: BLOOD UREA NITROGEN,BUN 7 mg/dL (7.0-18.0); CARBON DIOXIDE,CO2 20.3 mmol/L (21.0-32.0); CHLORIDE,CL 104 mmol/L (98-107); GLUCOSE RANDOM 119 mg/dL (74-106); POTASSIUM,K 3.7 mmol/L (3.5-5.1); SODIUM,NA 139 mmol/L (136-148)
[2021-01-02] MEDS ORDERED: Heparin Sodium 5,000 Units/ML Vial IVPUSH ONE (07:19)
--- NOTE | 2021-01-02 07:24 | EDM.PDOC ---
ED HPI GENERAL MEDICAL PROBLEM - General Chief Complaint: Respiratory Problem Stated Complaint: TROUBLE BREATHING, CLOT IN LUNG Time Seen by Provider: 01/02/21 06:59 Source of Information: Reports: Patient History Limitations: Reports: No Limitations - History of Present Illness INITIAL COMMENTS - FREE TEXT/NARRATIVE: 55-year-old male past medical history hypertension, alcohol abuse, recent diagnosis of saddle pulmonary embolism requiring transfer to [facility] presents for shortness of breath and chest tightness. Patient notes that he was seen on 715 at this hospital and was diagnosed with saddle pulmonary embolism. He was flown to [facility] for further work-up and management. He was discharged from the hospital 4 days ago. He notes that since discharge from the hospital he has not been able to shrimp picker his Lovenox or Eliquis medication so he has not been on anticoagulants. He notes since last night worsening chest tightness and shortness of breath. - Related Data Allergies Allergy/AdvReac Type Severity Reaction Status Date / Time No Known Allergies Allergy Verified 01/02/21 06:28 Home Meds: Home Meds Apixaban [Eliquis] 10 mg PO DAILY 01/02/21 [History] Enoxaparin [Lovenox] 150 mg SUBCUT DAILY 01/02/21 [History] Past Medical History HEENT History: Reports: Impaired Vision Other HEENT History: wears glasses Cardiovascular History: Reports: Blood Clots/VTE/DVT, High Cholesterol, Hypertension Respiratory History: Reports: None Gastrointestinal History: Reports: Colon Polyp, GI Bleed, Other (See Below) Genitourinary History: Reports: None Musculoskeletal History: Reports: Fracture Neurological History: Reports: None Psychiatric History: Reports: Anxiety Endocrine/Metabolic History: Reports: Obesity/BMI 30+ Insulin Pump Model and Caustics Loader: None Hematologic History: Reports: None Immunologic History: Reports: None Oncologic (Cancer) History: Reports: None Dermatologic History: Reports: None - Infectious Disease History Infectious Disease History: Reports: Measles Other Infectious Disease History: "possible Hep C" - Past Surgical History Head Surgeries/Procedures: Reports: None HEENT Surgical History: Reports: Oral Surgery Other HEENT Surgeries/Procedures: plastic repair of vestibule of mouth Cardiovascular Surgical History: Reports: None Respiratory Surgical History: Reports: None GI Surgical History: Reports: Colonoscopy Male Surgical History: Reports: None Endocrine Surgical History: Reports: None Neurological Surgical History: Reports: None Musculoskeletal Surgical History: Reports: Other (See Below) Other Musculoskeletal Surgeries/Procedures:: hx surgical repair of left ankle fx Dermatological Surgical History: Reports: None - Past Imaging History Past Imaging History: Reports: MRI (leg) Social & Family History - Family History Family Medical History: No Pertinent Family History - Caffeine Use Caffeine Use: Reports: None - Recreational Drug Use Recreational Drug Use: No ED ROS GENERAL - Review of Systems Review Of Systems: Comprehensive ROS is negative, except as noted in HPI. ED EXAM, GENERAL - Physical Exam Exam: See Below Exam Limited By: No Limitations General Appearance: Alert, WD/WN, No Apparent Distress Ears: Hearing Grossly Normal Throat/Mouth: Normal Voice, No Airway Compromise Head: Atraumatic, Normocephalic Neck: Normal Inspection Respiratory/Chest: No Respiratory Distress, Lungs Clear, Normal Breath Sounds, No Accessory Muscle Use, Other (tachpynea ) Cardiovascular: Normal Peripheral Pulses, Tachycardia Extremities: Normal Inspection Neurological: Alert, Normal Cognition Psychiatric: Normal Affect, Normal Mood Skin Exam: Warm, Dry, Intact, Normal Color #1 Interpretation EKG Date: 01/02/21 Time: 06:14 Rhythm: Other (sinus tachycardia) Rate (Beats/Min): 102 Lynch: Normal P-Wave: Present QRS: Normal ST-T: Normal QT: Prolonged (515) WY/PQ Interval: 164 EKG Interpretation Comments: no evidence of ischemia Course - Vital Signs Last Recorded V/S: Last Vital Signs Temp 97.3 F 01/02/21 08:30 Pulse 106 H 01/02/21 08:30 Resp 22 H 01/02/21 08:30 BP 113/81 01/02/21 08:30 Pulse Ox 96 01/02/21 08:30 - Orders/Labs/Meds Orders: Active Orders 24 hr Category Date Time Status Cardiac Monitoring [RC] . DIRECTED Care 01/02/21 07:25 Active EKG Documentation Completion [RC] AM Care 01/02/21 06:42 Active Pulse Oximetry [RC] ASDIRECTED Care 01/02/21 07:25 Active PTT,PARTIAL THROMBOPLSTIN TIME [COAG] Stat Lab 01/02/21 14:12 Ordered Heparin Sodium/0.45% NaCl [Heparin 25,000 Units in 1/2 Med 01/02/21 07:30 Active NS 500 ML] 500 ml IV TITRATE Sodium Chloride 0.9% [Saline Flush] Med 01/02/21 06:42 Active 10 ml FLUSH ASDIRECTED PRN Sodium Chloride 0.9% [Saline Flush] Med 01/02/21 06:42 Active 2.5 ml FLUSH ASDIRECTED PRN Saline Lock Insert [OM.PC] Stat Oth 01/02/21 06:42 Ordered Medication Orders Heparin Sodium/Sodium Chloride (Heparin 25,000 Units In 1/2 Ns 500 Ml) 500 mls @ 35.598 mls/hr IV TITRATE DOROTHY; Protocol Last Admin: 01/02/21 08:05 Dose: 14 units/kg/hr, 27.687 mls/hr Documented by: EMIGDIO Cosigned by: [id number] Sodium Chloride (Sodium Chloride 0.9% 10 Ml Syringe) 10 ml FLUSH ASDIRECTED PRN PRN Reason: Keep Vein Open Last Admin: 01/02/21 08:10 Dose: 10 ml Documented by: EMIGDIO Sodium Chloride (Sodium Chloride 0.9% 2.5 Ml Syringe) 2.5 ml FLUSH ASDIRECTED PRN PRN Reason: Keep Vein Open Last Admin: 01/02/21 08:04 Dose: 2.5 ml Documented by: EMIGDIO Labs: Laboratory Tests 01/02/21 01/02/21 01/02/21 Range/Units 06:10 06:10 06:10 WBC 9.83 (4.0-11.0) K/uL RBC 4.43 L (4.50-5.90) M/uL Hgb 16.6 (13.0-17.0) g/dL Hct 46.7 (38.0-50.0) % MCV 105.4 H (80.0-98.0) fL MCH 37.5 H (27.0-32.0) pg MCHC 35.5 (31.0-37.0) g/dL RDW Std Deviation 59.1 (28.0-62.0) fl RDW Coeff of Rosalie 15 (11.0-15.0) % Plt Count 220 (150-400) K/uL MPV 10.00 (7.40-12.00) fL Neut % (Auto) 67.8 (48.0-80.0) % Lymph % (Auto) 20.1 (16.0-40.0) % Gates % (Auto) 10.6 (0.0-15.0) % Eos % (Auto) 1.2 (0.0-7.0) % Baso % (Auto) 0.3 (0.0-1.5) % Neut # (Auto) 6.7 H (1.4-5.7) K/uL Lymph # (Auto) 2.0 (0.6-2.4) K/uL Gates # (Auto) 1.0 H (0.0-0.8) K/uL Eos # (Auto) 0.1 (0.0-0.7) K/uL Baso # (Auto) 0.0 (0.0-0.1) K/uL Nucleated RBC % 0.0 /100WBC Nucleated RBCs # 0 K/uL INR 1.14 APTT 25.8 (18.6-31.3) SEC Sodium 139 (136-148) mmol/L Potassium 3.7 (3.5-5.1) mmol/L Chloride 104 (98-107) mmol/L Carbon Dioxide 20.3 L (21.0-32.0) mmol/L BUN 7 (7.0-18.0) mg/dL Creatinine 1.2 (0.8-1.3) mg/dL Est Cr Clr Drug Dosing 71.82 mL/min Estimated GFR (MDRD) > 60.0 ml/min Glucose 119 H (74-106) mg/dL Calcium 8.4 L (8.5-10.1) mg/dL Magnesium 2.0 (1.8-2.4) mg/dL Total Bilirubin 1.5 H (0.2-1.0) mg/dL AST 27 (15-37) IU/L ALT 37 (14-63) IU/L Alkaline Phosphatase 73 (46-116) U/L Troponin I 0.064 H* (0.000-0.056) ng/mL Total Protein 7.3 (6.4-8.2) g/dL Albumin 3.2 L (3.4-5.0) g/dL Globulin 4.1 H (2.6-4.0) g/dL Albumin/Globulin Ratio 0.8 L (0.9-1.6) SARS-CoV-2 RNA (GUI) (NEGATIVE) 01/02/21 Range/Units 06:45 WBC (4.0-11.0) K/uL RBC (4.50-5.90) M/uL Hgb (13.0-17.0) g/dL Hct (38.0-50.0) % MCV (80.0-98.0) fL MCH (27.0-32.0) pg MCHC (31.0-37.0) g/dL RDW Std Deviation (28.0-62.0) fl RDW Coeff of Rosalie (11.0-15.0) % Plt Count (150-400) K/uL MPV (7.40-12.00) fL Neut % (Auto) (48.0-80.0) % Lymph % (Auto) (16.0-40.0) % Gates % (Auto) (0.0-15.0) % Eos % (Auto) (0.0-7.0) % Baso % (Auto) (0.0-1.5) % Neut # (Auto) (1.4-5.7) K/uL Lymph # (Auto) (0.6-2.4) K/uL Gates # (Auto) (0.0-0.8) K/uL Eos # (Auto) (0.0-0.7) K/uL Baso # (Auto) (0.0-0.1) K/uL Nucleated RBC % /100WBC Nucleated RBCs # K/uL INR APTT (18.6-31.3) SEC Sodium (136-148) mmol/L Potassium (3.5-5.1) mmol/L Chloride (98-107) mmol/L Carbon Dioxide (21.0-32.0) mmol/L BUN (7.0-18.0) mg/dL Creatinine (0.8-1.3) mg/dL Est Cr Clr Drug Dosing mL/min Estimated GFR (MDRD) ml/min Glucose (74-106) mg/dL Calcium (8.5-10.1) mg/dL Magnesium (1.8-2.4) mg/dL Total Bilirubin (0.2-1.0) mg/dL AST (15-37) IU/L ALT (14-63) IU/L Alkaline Phosphatase (46-116) U/L Troponin I (0.000-0.056) ng/mL Total Protein (6.4-8.2) g/dL Albumin (3.4-5.0) g/dL Globulin (2.6-4.0) g/dL Albumin/Globulin Ratio (0.9-1.6) SARS-CoV-2 RNA (GUI) NEGATIVE (NEGATIVE) Meds: Medications Generic Name Dose Route Start Last Admin Trade Name Freq PRN Reason Stop Dose Admin Heparin Sodium/Sodium Chloride 500 mls @ 35.598 mls/hr 01/02/21 07:30 01/02/21 08:05 Heparin 25,000 Units In 06/15 Ns 500 Ml IV 14 units/kg/hr TITRATE DOROTHY 27.687 mls/hr Administration Protocol 18 UNITS/KG/HR Sodium Chloride 10 ml 01/02/21 06:42 01/02/21 08:10 Sodium Chloride 0.9% 10 Ml Syringe FLUSH 10 ml ASDIRECTED PRN Administration Keep Vein Open Sodium Chloride 2.5 ml 01/02/21 06:42 01/02/21 08:04 Sodium Chloride 0.9% 2.5 Ml Syringe FLUSH 2.5 ml ASDIRECTED PRN Administration Keep Vein Open Discontinued Medications Generic Name Dose Route Start Last Admin Trade Name Freq PRN Reason Stop Dose Admin Acetaminophen 1,000 mg 01/02/21 08:15 01/02/21 08:29 Acetaminophen 500 Mg Tab PO 01/02/21 08:16 1,000 mg ONETIME ONE Administration Heparin Sodium (Porcine) 5,000 units 01/02/21 07:19 01/02/21 08:04 Heparin Sodium 5,000 Units/Ml Vial IVPUSH 01/02/21 07:20 5,000 units .BOLUS ONE Administration Iopamidol 100 ml 01/02/21 08:38 01/02/21 08:39 Iopamidol 755 Mg/Ml 500 Ml Multipack Bottle IVPUSH 01/02/21 08:39 100 ml ONETIME STA Administration Ondansetron HCl 4 mg 01/02/21 06:46 01/02/21 06:51 Ondansetron 4 Mg/2 Ml Sdv IVPUSH 01/02/21 06:47 4 mg ONETIME ONE Administration - Re-Assessments/Exams Free Text/Narrative Re-Assessment/Exam: 01/02/21 07:35 Patient is noted to be hypoxic to 90 on room air although this improves with 2 L nasal cannula. Patient is also tachycardic to low 100s. He has a known saddle embolism and has not been on anticoagulation for the last several days. Will start a heparin drip now. Will get CTA chest and compare with prior imaging from the . Patient is noted to have elevated troponin consistent with known saddle embolism; this is lower than troponin collected at time of diagnosis on 12-26. 01/02/21 08:34 CTA reveals evidence of slightly larger saddle embolism with persistent right heart strain. I did speak with hospitalist Dr. Tavares regarding admit vs transfer, and given the evidence of R heart strain and elevated troponin, she recommends transfer which I agree with. Will reach out to for transfer of care. 01/02/21 08:37 Patient agreeable with plan, O2 sats 97% on 2-L NC, HR 104 01/02/21 08:[address] Meraz ER physician at ; he will reach out to their interventionalist to help determine disposition. Anticipate call back shortly 01/02/21 08:51 Dr. Meraz agrees to accept patient under his service. I did offer the patient [facility] by helicopter but patient declines. We will send by [facility] ground ambulance service. Departure - Departure Time of Disposition: 08:51 Disposition: DC/Tfer to Acute Hospital 02 Condition: Fair Clinical Impression: Saddle embolus of pulmonary artery Qualifiers: Chronicity: unspecified Acute cor pulmonale presence: with acute cor pulmonale Qualified Code(s): I26.02 - Saddle embolus of pulmonary artery with acute cor pulmonale - Discharge Information Referrals: PCP,None [Primary Care Provider] - Forms: ED Department Discharge Critical Care Note - Critical Care Note Total Time (mins): 35 Sepsis Event Note (ED) - Evaluation Sepsis Screening Result: No Definite Risk - Focused Exam Vital Signs: Vital Signs Temp Pulse Resp BP Pulse Ox 01/02/21 08:30 97.3 F 106 H 22 H 113/81 96 01/02/21 07:41 103 H 22 H 109/78 96 01/02/21 07:10 97.2 F 102 H 24 H 101/68 96 01/02/21 06:20 97.5 F 108 H 28 H 119/90 90 L - My Orders Last 24 Hours: My Active Orders 01/02/21 07:25 Cardiac Monitoring [RC] . DIRECTED Pulse Oximetry [RC] ASDIRECTED 01/02/21 07:30 Heparin Sodium/0.45% NaCl [Heparin 25,000 Units in 1/2 NS 500 ML] 500 ml IV TITRATE 01/02/21 14:12 PTT,PARTIAL THROMBOPLSTIN TIME [COAG] Stat - Assessment/Plan Last 24 Hours: My Active Orders 01/02/21 07:25 Cardiac Monitoring [RC] . DIRECTED Pulse Oximetry [RC] ASDIRECTED 01/02/21 07:30 Heparin Sodium/0.45% NaCl [Heparin 25,000 Units in 1/2 NS 500 ML] 500 ml IV TITRATE 01/02/21 14:12 PTT,PARTIAL THROMBOPLSTIN TIME [COAG] Stat
[2021-01-02] MEDS ORDERED: Heparin Sodium/0.45% NaCl 500 ML IV SCH (07:30)
--- NOTE | 2021-01-02 07:41 | CR ---
INDICATION: Shortness of breath TECHNIQUE: Chest 1 views COMPARISON: 12/26/2020 FINDINGS: Cardiovascular and mediastinum: Heart size and vasculature are normal in caliber and appearance. Lungs and pleural spaces: Lungs are clear. No sign of infiltrate or mass. No sign of pleural effusion. No pneumothorax. Bones and soft tissues: No significant findings. IMPRESSION: Negative chest. No specific finding to explain shortness of breath. Dictated by Wenceslao Urena MD @ 01/02/2021 7:40:[address] Wenceslao Urena @ Jan 02 2021 7:40AM
[2021-01-02] MEDS ORDERED: Acetaminophen 500 MG Tab PO ONE (08:15)
--- NOTE | 2021-01-02 08:21 | CT ---
INDICATION: Pulmonary embolism. TECHNIQUE: CT chest PE was acquired with 100 cc Isovue 370 IV contrast. COMPARISON: December 26, 2020. FINDINGS: Heart and vasculature: Again demonstrated is a significant burden of large bilateral central pulmonary emboli. This has worsened in the left hilar region. The saddle embolus at the bifurcation of the main pulmonary artery is smaller. Heart size is normal. Thoracic aorta and pulmonary artery are normal in caliber.There is evidence of right heart strain. Lungs and pleural: Left posterior pleural base lung consolidations are unchanged. Smaller scattered peripheral pulmonary opacities have improved. Trace left pleural effusion. No pneumothorax. Lymph nodes/mediastinum: No mediastinal, hilar, or axillary adenopathy. Chest wall: No masses. Upper abdomen: Normal. Bones: Unremarkable for age. IMPRESSION: 1. Significant burden of large central bilateral pulmonary emboli have slightly evolved but overall not significantly changed. There remains evidence of right heart strain. 2. Persistent but improved pneumonitis. 3. Stable atelectasis and/or infarcts in the posterior left lung base. Please note that all CT scans at this facility use dose modulation, iterative reconstruction, and/or weight-based dosing when appropriate to reduce radiation dose to as low as reasonably achievable. Dictated by Wenceslao Urena MD @ 01/02/2021 8:20:[address] Wenceslao Urena @ Jan 02 2021 8:20AM
[2021-01-02] MEDS ORDERED: Iopamidol 755 MG/ML 500 ML Multipack Bottle IVPUSH STA (08:38)
[2021-01-02] MEDS ORDERED: Sodium Chloride 0.9% 1,000 ML IV ONE (09:20)
[2021-01-02 09:56] VITALS: BP 108/50; PULSE 80
== END 2021-01-02 09:57 ==
LOC: MW.ED 06:16
DX: I26.02 Saddle embolus of pulmonary artery with acute cor pulmonale (principal); E78.00 Pure hypercholesterolemia, unspecified; I10 Essential (primary) hypertension; E66.9 Obesity, unspecified; Z68.31 Body mass index [BMI] 31.0-31.9, adult; Z79.01 Long term (current) use of anticoagulants; Z20.822 Contact with and (suspected) exposure to COVID-19
CPT/HCPCS: 36415; 71045; 71275; 80053; 83735; 84484; 85025; 85610; 85730; 87635; 93005; 96365; 96366; 96375; 99285; A9270; J1644; J2405; J7030; Q9967; U0002

== ENCOUNTER 2021-02-10 01:13 | Emergency (ER) | payer MEDICAID ==
[2021-02-10] MEDS ORDERED: Midazolam 1 MG/ML 2 ML SDV IVPUSH ONE (01:17)
[2021-02-10] MEDS ORDERED: LORazepam 2 MG/ML SDV IVPUSH ONE (01:17)
--- NOTE | 2021-02-10 01:23 | EDM.PDOCBH ---
<Praveen Merchant - Last Filed: 02/10/21 06:33> ED HPI GENERAL MEDICAL PROBLEM - General Chief Complaint: Drug or Alcohol Abuse Stated Complaint: OVERDOSE Time Seen by Provider: 02/10/21 01:20 Source of Information: Reports: Patient, Police History Limitations: Reports: Uncooperative - History of Present Illness INITIAL COMMENTS - FREE TEXT/NARRATIVE: Patient is a 55-year-old male with a history of PE on Eliquis presents today for possible overdose on Eliquis. Is unclear much he took he could take anywhere from 40 pills there 5 mg doses. He had driven himself to the ED are and was seen outside acting strange police came and found patient to brought him in. Patient admitted to drinking alcohol as well on top of taking the Eliquis. He has been uncooperative only states that he wants to see his and would not answer any questions. Police did have some information from a friend and states that they have empty bottle at home and to follow his [id number] sooner should he take any as prescribed or if he just took them all tonight. We did speak to poison control and they recommend watch the patient for 8 hours and repeating coags at that time as well. - Related Data Allergies Allergy/AdvReac Type Severity Reaction Status Date / Time No Known Allergies Allergy Verified 02/10/21 01:18 Home Meds: Home Meds Apixaban [Eliquis] 10 mg PO DAILY 01/02/21 [History] Enoxaparin [Lovenox] 150 mg SUBCUT DAILY 01/02/21 [History] Past Medical History HEENT History: Reports: Impaired Vision Other HEENT History: wears glasses Cardiovascular History: Reports: Blood Clots/VTE/DVT, High Cholesterol, Hypertension Respiratory History: Reports: None Gastrointestinal History: Reports: Colon Polyp, GI Bleed, Other (See Below) Genitourinary History: Reports: None Musculoskeletal History: Reports: Fracture Neurological History: Reports: None Psychiatric History: Reports: Anxiety Endocrine/Metabolic History: Reports: Obesity/BMI 30+ 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 Model and Professor Of 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 Science: None Hematologic History: Reports: None Immunologic History: Reports: None Oncologic (Cancer) History: Reports: None Dermatologic History: Reports: None - Infectious Disease History Infectious Disease History: Reports: Measles Other Infectious Disease History: "possible Hep C" - Past Surgical History Head Surgeries/Procedures: Reports: None HEENT Surgical History: Reports: Oral Surgery Other HEENT Surgeries/Procedures: plastic repair of vestibule of mouth Cardiovascular Surgical History: Reports: None Respiratory Surgical History: Reports: None GI Surgical History: Reports: Colonoscopy Male Surgical History: Reports: None Endocrine Surgical History: Reports: None Neurological Surgical History: Reports: None Musculoskeletal Surgical History: Reports: Other (See Below) Other Musculoskeletal Surgeries/Procedures:: hx surgical repair of left ankle fx Dermatological Surgical History: Reports: None - Past Imaging History Past Imaging History: Reports: MRI (leg) Social & Family History - Family History Family Medical History: No Pertinent Family History - Caffeine Use Caffeine Use: Reports: None ED ROS GENERAL - Review of Systems Review Of Systems: Unable To Obtain Reason Not Obtained: Uncooperative ED EXAM, BEHAVIORAL HEALTH - Physical Exam Exam: See Below Reason Not Obtained: Patient is uncooperative would not let us touch him Exam Limited By: Uncooperative #1 Interpretation EKG Date: 02/10/21 Time: 02:10 Rhythm: NSR Rate (Beats/Min): 78 ST-T: Normal COURSE, BEHAVIORAL HEALTH COMP - Course Re-Assessment/Re-Exam: Patient pulled his IV out and screaming at the staff and the police commanding officer. He became upset because his cannot come back but the nurses were getting labs and still evaluating patient. We had to give patient IM Haldol and Ativan. 553am And now stating that he does not want to harm self and do not take Eliquis.Patient is awake we will still redraw his labs as reported by poison control and if stable and patient has safe place to go can likely be discharged home. We attempted to call patient's she is not picking up. Watch patient is fully awake and we can speak to his patient can likely be discharged. We will also again repeat his labs this morning. Departure - Departure Disposition: Home, Self-Care 01 Clinical Impression: Alcohol abuse, Alcohol intoxication - Discharge Information Instructions: Alcohol Intoxication, [id number] Referrals: PCP,None [Primary Care Provider] - Forms: ED Department Discharge Additional Instructions: You were evaluated today on an emergent basis. At this time you were intoxicated. We do recommend that you refrain from alcohol use. In addition you did mention last night that you took Eliquis in order to end your life. I do believe this is secondary to you drinking as you are not expressing those concerns now. Given that you took Eliquis they do not recommend anything further from the Poison Control Center. It is important that you do not fall or hit your head. If you do hit your head I would like you to return to the emergency department immediately as you do have increased risk of brain bleed. I would like you to follow-up with primary care physician in 1 to 3 days for reevaluation. [facility] [address] [place] [id number] [facility] [address] [place] [address] The patient is informed of any results of their evaluation and diagnostic workup and all questions are answered. They are given discharge instructions and return precautions. The patient is stable for discharge. The patient states they understand and agree with the plan and that they will return if their symptoms get worse or if they have any new concerns. The following information is given to patients seen in the emergency department who are being discharged to home. This information is to outline your options for follow-up care. We provide all patients seen in our emergency department with a follow-up referral. The need for follow-up, as well as the timing and circumstances, are variable depending upon the specifics of your emergency department visit. If you don't have a primary care physician on staff, we will provide you with a referral. We always advise you to contact your personal physician following an emergency department visit to inform them of the circumstance of the visit and for follow-up with them and/or the need for any referrals to a consulting specialist. The emergency department will also refer you to a specialist when appropriate. This referral assures that you have the opportunity for follow-up care with a specialist. All of these measure are taken in an effort to provide you with optimal care, which includes your follow-up. Under all circumstances we always encourage you to contact your private physician who remains a resource for coordinating your care. When calling for follow-up care, please make the office aware that this follow-up is from your recent emergency room visit. If for any reason you are refused follow-up, please contact the [facility] Emergency Department at and asked to speak to the emergency department charge nurse. Critical Care Note - Critical Care Note Total Time (mins): 55 Comments: Critical Care Procedure Note Authorized and Performed by: Dr. Merchant Total critical care time: Approximately Due to a high probability of clinically significant, life threatening deterioration, the patient required my highest level of preparedness to int ervene emergently and I personally spent this critical care time directly and personally managing the patient. This critical care time included obtaining a history; examining the patient; pulse oximetry; ordering and review of studies; arranging urgent treatment with development of a management plan; evaluation of patient's response to treatment; frequent reassessment; and, discussions with other providers. This critical care time was performed to assess and manage the high probability of imminent, life-threatening deterioration that could result in multi-organ failure. It was exclusive of separately billable procedures and treating other patients and teaching time. Sepsis Event Note (ED) - Evaluation Sepsis Screening Result: No Definite Risk - Assessment/Plan Plan: Patient is a 55-year-old male presents today after possible overdose on Eliquis. Patient also reports of drinking alcohol. Patient's been very cooperative on exam. We did speak to poison control who recommends observing patient for 8 hours and repeating coags. It is unclear what is Eliquis patient did take. <Amos Moreno - Last Filed: 02/11/21 21:06> ED HPI GENERAL MEDICAL PROBLEM - History of Present Illness INITIAL COMMENTS - FREE TEXT/NARRATIVE: Patient was signed out to me by Dr. Merchant pending reevaluation and repeat labs at 7 AM. I did reevaluate the patient and patient was able to tolerate p.o. and upon clinical sobriety denied any suicidal ideation and states that he does not remember taking Eliquis. He states that he is never tried to hurt himself before and currently denies any suicidal ideation, depression or attempt. Laboratory: Repeat CBC reveals a stable hemoglobin at 14.2 hematocrit of 40.9, increased platelet count at 144 which is up from prior at 137 which is stable. Coags are also within normal limits. Repeat salicylate level was normal. At this time I do believe the patient's suicidal ideation was likely secondary to alcohol intoxication. This is in addition to his Eliquis. He is encouraged to not drink and to refrain from taking any tablets. He is to return for any new or worsening symptoms. Poison control was updated and the patient is stable for discharge. DISPOSITION: The patient was discharged home in stable condition. The patient will follow up with primary care physician in 1 to 3 days CONDITION: Fair PROCEDURES: None FINAL IMPRESSION(S)/DIAGNOSES: 1. Acute alcohol intoxication 2. Acute medication ingestion secondary to suicidal attempt 3. Acute suicidal attempt likely secondary #1 Amos Moreno M.D. COURSE, BEHAVIORAL HEALTH COMP - Course Vital Signs: Last Vital Signs Temp 36.0 C L 02/10/21 04:51 Pulse 92 02/10/21 10:37 Resp 21 H 02/10/21 07:07 BP 144/92 H 02/10/21 10:37 Pulse Ox 94 L 02/10/21 10:37 Orders, Labs, Meds: Laboratory Tests 02/10/21 02/10/21 02/10/21 Range/Units 01:30 01:30 01:30 WBC 6.42 (4.0-11.0) K/uL RBC 4.32 L (4.50-5.90) M/uL Hgb 16.3 (13.0-17.0) g/dL Hct 45.7 (38.0-50.0) % MCV 105.8 H (80.0-98.0) fL MCH 37.7 H (27.0-32.0) pg MCHC 35.7 (31.0-37.0) g/dL RDW Std Deviation 59.0 (28.0-62.0) fl RDW Coeff of Rosalie 15 (11.0-15.0) % Plt Count 172 (150-400) K/uL MPV 9.20 (7.40-12.00) fL Neut % (Auto) 41.8 L (48.0-80.0) % Lymph % (Auto) 48.3 H (16.0-40.0) % Douglas % (Auto) 8.7 (0.0-15.0) % Eos % (Auto) 0.9 (0.0-7.0) % Baso % (Auto) 0.3 (0.0-1.5) % Neut # (Auto) 2.7 (1.4-5.7) K/uL Lymph # (Auto) 3.1 H (0.6-2.4) K/uL Douglas # (Auto) 0.6 (0.0-0.8) K/uL Eos # (Auto) 0.1 (0.0-0.7) K/uL Baso # (Auto) 0.0 (0.0-0.1) K/uL Nucleated RBC % 0.0 /100WBC Nucleated RBCs # 0 K/uL INR 1.17 APTT 29.2 (18.6-31.3) SEC Sodium 140 (136-148) mmol/L Potassium 3.6 (3.5-5.1) mmol/L Chloride 101 (98-107) mmol/L Carbon Dioxide 21.0 (21.0-32.0) mmol/L BUN 7 (7.0-18.0) mg/dL Creatinine 1.1 (0.8-1.3) mg/dL Est Cr Clr Drug Dosing 75.88 mL/min Estimated GFR (MDRD) > 60.0 ml/min Glucose 101 (74-106) mg/dL Calcium 8.4 L (8.5-10.1) mg/dL Total Bilirubin 1.4 H (0.2-1.0) mg/dL AST 53 H (15-37) IU/L ALT 74 H (14-63) IU/L Alkaline Phosphatase 70 (46-116) U/L Creatine Kinase 108 (26-308) U/L Troponin I < 0.050 (0.000-0.056) ng/mL Total Protein 7.7 (6.4-8.2) g/dL Albumin 3.8 (3.4-5.0) g/dL Globulin 3.9 (2.6-4.0) g/dL Albumin/Globulin Ratio 1.0 (0.9-1.6) Salicylates (0-20) mg/dL Urine Opiates Screen (NEGATIVE) Ur Oxycodone Screen (NEGATIVE) Urine Methadone Screen (NEGATIVE) Acetaminophen ug/mL Ur Barbiturates Screen (NEGATIVE) Ur Phencyclidine Scrn (NEGATIVE) Ur Amphetamine Screen (NEGATIVE) U Methamphetamines Scrn (NEGATIVE) U Benzodiazepines Scrn (NEGATIVE) U Cocaine Metab Screen (NEGATIVE) U Marijuana (THC) Screen (NEGATIVE) Ethyl Alcohol 211 mg/dL 02/10/21 02/10/21 02/10/21 Range/Units 01:30 02:20 06:11 WBC 4.03 (4.0-11.0) K/uL RBC 3.74 L (4.50-5.90) M/uL Hgb 14.0 (13.0-17.0) g/dL Hct 40.5 (38.0-50.0) % MCV 108.3 H (80.0-98.0) fL MCH 37.4 H (27.0-32.0) pg MCHC 34.6 (31.0-37.0) g/dL RDW Std Deviation 59.1 (28.0-62.0) fl RDW Coeff of Rosalie 15 (11.0-15.0) % Plt Count 137 L (150-400) K/uL MPV 9.10 (7.40-12.00) fL Neut % (Auto) 45.2 L (48.0-80.0) % Lymph % (Auto) 43.4 H (16.0-40.0) % Douglas % (Auto) 9.7 (0.0-15.0) % Eos % (Auto) 1.5 (0.0-7.0) % Baso % (Auto) 0.2 (0.0-1.5) % Neut # (Auto) 1.8 (1.4-5.7) K/uL Lymph # (Auto) 1.8 (0.6-2.4) K/uL Douglas # (Auto) 0.4 (0.0-0.8) K/uL Eos # (Auto) 0.1 (0.0-0.7) K/uL Baso # (Auto) 0.0 (0.0-0.1) K/uL Nucleated RBC % 0.0 /100WBC Nucleated RBCs # 0 K/uL INR APTT (18.6-31.3) SEC Sodium (136-148) mmol/L Potassium (3.5-5.1) mmol/L Chloride (98-107) mmol/L Carbon Dioxide (21.0-32.0) mmol/L BUN (7.0-18.0) mg/dL Creatinine (0.8-1.3) mg/dL Est Cr Clr Drug Dosing mL/min Estimated GFR (MDRD) ml/min Glucose (74-106) mg/dL Calcium (8.5-10.1) mg/dL Total Bilirubin (0.2-1.0) mg/dL AST (15-37) IU/L ALT (14-63) IU/L Alkaline Phosphatase (46-116) U/L Creatine Kinase (26-308) U/L Troponin I (0.000-0.056) ng/mL Total Protein (6.4-8.2) g/dL Albumin (3.4-5.0) g/dL Globulin (2.6-4.0) g/dL Albumin/Globulin Ratio (0.9-1.6) Salicylates 3.1 (0-20) mg/dL Urine Opiates Screen NEGATIVE (NEGATIVE) Ur Oxycodone Screen NEGATIVE (NEGATIVE) Urine Methadone Screen NEGATIVE (NEGATIVE) Acetaminophen <2.0 ug/mL Ur Barbiturates Screen NEGATIVE (NEGATIVE) Ur Phencyclidine Scrn NEGATIVE (NEGATIVE) Ur Amphetamine Screen NEGATIVE (NEGATIVE) U Methamphetamines Scrn NEGATIVE (NEGATIVE) U Benzodiazepines Scrn NEGATIVE (NEGATIVE) U Cocaine Metab Screen NEGATIVE (NEGATIVE) U Marijuana (THC) Screen POSITIVE (NEGATIVE) Ethyl Alcohol mg/dL 02/10/21 02/10/21 02/10/21 Range/Units 06:11 06:11 09:22 WBC (4.0-11.0) K/uL RBC (4.50-5.90) M/uL Hgb (13.0-17.0) g/dL Hct (38.0-50.0) % MCV (80.0-98.0) fL MCH (27.0-32.0) pg MCHC (31.0-37.0) g/dL RDW Std Deviation (28.0-62.0) fl RDW Coeff of Rosalie (11.0-15.0) % Plt Count (150-400) K/uL MPV (7.40-12.00) fL Neut % (Auto) (48.0-80.0) % Lymph % (Auto) (16.0-40.0) % Douglas % (Auto) (0.0-15.0) % Eos % (Auto) (0.0-7.0) % Baso % (Auto) (0.0-1.5) % Neut # (Auto) (1.4-5.7) K/uL Lymph # (Auto) (0.6-2.4) K/uL Douglas # (Auto) (0.0-0.8) K/uL Eos # (Auto) (0.0-0.7) K/uL Baso # (Auto) (0.0-0.1) K/uL Nucleated RBC % /100WBC Nucleated RBCs # K/uL INR 1.33 1.26 APTT 32.1 H 28.7 (18.6-31.3) SEC Sodium 142 (136-148) mmol/L Potassium 3.7 (3.5-5.1) mmol/L Chloride 107 (98-107) mmol/L Carbon Dioxide 20.8 L (21.0-32.0) mmol/L BUN 5 L (7.0-18.0) mg/dL Creatinine 0.9 (0.8-1.3) mg/dL Est Cr Clr Drug Dosing 92.74 mL/min Estimated GFR (MDRD) > 60.0 ml/min Glucose 79 (74-106) mg/dL Calcium 7.3 L (8.5-10.1) mg/dL Total Bilirubin (0.2-1.0) mg/dL AST (15-37) IU/L ALT (14-63) IU/L Alkaline Phosphatase (46-116) U/L Creatine Kinase (26-308) U/L Troponin I (0.000-0.056) ng/mL Total Protein (6.4-8.2) g/dL Albumin (3.4-5.0) g/dL Globulin (2.6-4.0) g/dL Albumin/Globulin Ratio (0.9-1.6) Salicylates (0-20) mg/dL Urine Opiates Screen (NEGATIVE) Ur Oxycodone Screen (NEGATIVE) Urine Methadone Screen (NEGATIVE) Acetaminophen ug/mL Ur Barbiturates Screen (NEGATIVE) Ur Phencyclidine Scrn (NEGATIVE) Ur Amphetamine Screen (NEGATIVE) U Methamphetamines Scrn (NEGATIVE) U Benzodiazepines Scrn (NEGATIVE) U Cocaine Metab Screen (NEGATIVE) U Marijuana (THC) Screen (NEGATIVE) Ethyl Alcohol mg/dL 02/10/21 02/10/21 Range/Units 09:22 09:22 WBC 3.92 L (4.0-11.0) K/uL RBC 3.78 L (4.50-5.90) M/uL Hgb 14.2 (13.0-17.0) g/dL Hct 40.9 (38.0-50.0) % MCV 108.2 H (80.0-98.0) fL MCH 37.6 H (27.0-32.0) pg MCHC 34.7 (31.0-37.0) g/dL RDW Std Deviation 59.6 (28.0-62.0) fl RDW Coeff of Rosalie 15 (11.0-15.0) % Plt Count 144 L (150-400) K/uL MPV 9.10 (7.40-12.00) fL Neut % (Auto) 51.0 (48.0-80.0) % Lymph % (Auto) 37.5 (16.0-40.0) % Douglas % (Auto) 9.4 (0.0-15.0) % Eos % (Auto) 1.8 (0.0-7.0) % Baso % (Auto) 0.3 (0.0-1.5) % Neut # (Auto) 2.0 (1.4-5.7) K/uL Lymph # (Auto) 1.5 (0.6-2.4) K/uL Douglas # (Auto) 0.4 (0.0-0.8) K/uL Eos # (Auto) 0.1 (0.0-0.7) K/uL Baso # (Auto) 0.0 (0.0-0.1) K/uL Nucleated RBC % 0.0 /100WBC Nucleated RBCs # 0 K/uL INR APTT (18.6-31.3) SEC Sodium (136-148) mmol/L Potassium (3.5-5.1) mmol/L Chloride (98-107) mmol/L Carbon Dioxide (21.0-32.0) mmol/L BUN (7.0-18.0) mg/dL Creatinine (0.8-1.3) mg/dL Est Cr Clr Drug Dosing mL/min Estimated GFR (MDRD) ml/min Glucose (74-106) mg/dL Calcium (8.5-10.1) mg/dL Total Bilirubin (0.2-1.0) mg/dL AST (15-37) IU/L ALT (14-63) IU/L Alkaline Phosphatase (46-116) U/L Creatine Kinase (26-308) U/L Troponin I (0.000-0.056) ng/mL Total Protein (6.4-8.2) g/dL Albumin (3.4-5.0) g/dL Globulin (2.6-4.0) g/dL Albumin/Globulin Ratio (0.9-1.6) Salicylates 2.7 (0-20) mg/dL Urine Opiates Screen (NEGATIVE) Ur Oxycodone Screen (NEGATIVE) Urine Methadone Screen (NEGATIVE) Acetaminophen ug/mL Ur Barbiturates Screen (NEGATIVE) Ur Phencyclidine Scrn (NEGATIVE) Ur Amphetamine Screen (NEGATIVE) U Methamphetamines Scrn (NEGATIVE) U Benzodiazepines Scrn (NEGATIVE) U Cocaine Metab Screen (NEGATIVE) U Marijuana (THC) Screen (NEGATIVE) Ethyl Alcohol mg/dL Medications Discontinued Medications Generic Name Dose Route Start Last Admin Trade Name Freq PRN Reason Stop Dose Admin Diphenhydramine HCl 50 mg 02/10/21 01:50 02/10/21 01:55 Diphenhydramine 50 Mg/Ml Sdv IM 02/10/21 01:51 50 mg ONETIME ONE Administration Diphenhydramine HCl Confirm 02/10/21 01:48 02/10/21 01:57 Diphenhydramine 50 Mg/Ml Sdv Administered 02/10/21 01:49 Not Given Dose 50 mg .ROUTE .STK-MED ONE Haloperidol Lactate 5 mg 02/10/21 01:50 02/10/21 01:55 Haloperidol Lactate 5 Mg/Ml Sdv IM 02/10/21 01:51 5 mg ONETIME ONE Administration Haloperidol Lactate Confirm 02/10/21 01:48 02/10/21 01:57 Haloperidol Lactate 5 Mg/Ml Sdv Administered 02/10/21 01:49 Not Given Dose 5 mg .ROUTE .STK-MED ONE Sodium Chloride 1,000 mls @ 999 mls/hr 02/10/21 04:50 02/10/21 04:51 Normal Saline IV 02/10/21 05:50 999 mls/hr .Bolus ONE Administration Sodium Chloride 1,000 mls @ 999 mls/hr 02/10/21 05:58 02/10/21 05:30 Normal Saline IV 02/10/21 06:58 999 mls/hr .Bolus ONE Administration Lorazepam 2 mg 02/10/21 01:17 02/10/21 01:56 Lorazepam 2 Mg/Ml Sdv IVPUSH 02/10/21 01:18 Not Given ONETIME ONE Lorazepam 2 mg 02/10/21 01:50 02/10/21 01:56 Lorazepam 2 Mg/Ml Sdv IM 02/10/21 01:51 2 mg ONETIME ONE Administration Midazolam HCl 2 mg 02/10/21 01:17 02/10/21 01:57 Midazolam 1 Mg/Ml 2 Ml Sdv IVPUSH 02/10/21 01:18 Not Given ONETIME ONE Departure - Departure Time of Disposition: 10:55 Condition: Fair - Discharge Information *PRESCRIPTION DRUG MONITORING PROGRAM REVIEWED*: No *COPY OF PRESCRIPTION DRUG MONITORING REPORT IN PATIENT SAHARA: No
[2021-02-10] MEDS ORDERED: diphenhydrAMINE 50 MG/ML SDV ONE (01:48)
[2021-02-10] MEDS ORDERED: Haloperidol Lactate 5 MG/ML SDV ONE (01:48)
--- NOTE | 2021-02-10 01:48 | CR ---
INDICATION: Alcohol intoxication TECHNIQUE: Chest radiograph 1 view COMPARISON: 01/02/2021 FINDINGS: Mediastinum: The mediastinum is normal in appearance. The heart silhouette is normal in size and morphology. Lung: Both lungs are unremarkable in appearance. No sign of pleural effusion seen. No pneumothorax is identified. Bone and Soft tissue: Unremarkable for age. IMPRESSION: 1. No acute cardiopulmonary disease is seen. Dictated by: Moi Quintana MD @ 02/10/2021 01:48:22 (Electronically Signed)
[2021-02-10] MEDS ORDERED: LORazepam 2 MG/ML SDV IM ONE (01:50)
[2021-02-10] MEDS ORDERED: diphenhydrAMINE 50 MG/ML SDV IM ONE (01:50)
[2021-02-10] MEDS ORDERED: Haloperidol Lactate 5 MG/ML SDV IM ONE (01:50)
[2021-02-10 01:58] LABS: ACETAMINOPHEN <2.0 ug/mL
[2021-02-10 02:03] LABS: BLOOD UREA NITROGEN,BUN 7 mg/dL (7.0-18.0); CHLORIDE,CL 101 mmol/L (98-107); GLUCOSE RANDOM 101 mg/dL (74-106); POTASSIUM,K 3.6 mmol/L (3.5-5.1); SODIUM,NA 140 mmol/L (136-148)
[2021-02-10] MEDS ORDERED: Sodium Chloride 0.9% 1,000 ML IV ONE ×2 (04:50→05:58)
[2021-02-10 06:36] LABS: BLOOD UREA NITROGEN,BUN 5 mg/dL (7.0-18.0); CARBON DIOXIDE,CO2 20.8 mmol/L (21.0-32.0); CHLORIDE,CL 107 mmol/L (98-107); GLUCOSE RANDOM 79 mg/dL (74-106); POTASSIUM,K 3.7 mmol/L (3.5-5.1); SODIUM,NA 142 mmol/L (136-148)
[2021-02-10 10:59] VITALS: BP 144/92; PULSE 92
== END 2021-02-10 11:00 | disposition home or self-care (01) ==
LOC: MW.ED 01:13
DX: T50.902A Poisoning by unspecified drugs, medicaments and biological substances, intentional self-harm, initial encounter (principal); F10.129 Alcohol abuse with intoxication, unspecified; I10 Essential (primary) hypertension; E66.9 Obesity, unspecified; Z68.36 Body mass index [BMI] 36.0-36.9, adult; Z86.711 Personal history of pulmonary embolism; Z79.01 Long term (current) use of anticoagulants; Y90.7 Blood alcohol level of 200-239 mg/100 ml
CPT/HCPCS: 36415; 71045; 80048; 80053; 80143; 80179; 80305; 80307; 82550; 84484; 85025; 85610; 85730; 93005; 96372; 99291; J1200; J1630; J2060; J7030

== ENCOUNTER 2021-08-27 22:03 | Emergency (ER) | payer SELFPAY ==
[2021-08-27] MEDS ORDERED: Enoxaparin 100 MG/1 ML Syringe SUBCUT ONE (23:18)
[2021-08-27 23:34] VITALS: BP 154/99; PULSE 82
== END 2021-08-27 23:37 ==
LOC: MW.ED 22:03
DX: Z02.89 Encounter for other administrative examinations (principal); I10 Essential (primary) hypertension; Z79.899 Other long term (current) drug therapy
CPT/HCPCS: 99283